=== PATIENT | male | born 1940 | race Caucasian/White ===

== ENCOUNTER 2019-11-24 15:55 | Inpatient (IN) | payer MEDICARE, MEDICAID ==
[~2019-11-24] VITALS: Ht 190.5 cm; Wt 85.5 kg
--- NOTE | ~2019-11-24 | PN ---
PATIENT:LIDYA ESTEVES MEDICAL RECORD: [id number] LOCATION:[facility] ADMISSION DATE: 11/24/19 PROGRESS NOTE DATE OF SERVICE: 12/04/2019 SUBJECTIVE: The patient's case was discussed with staff and the record was reviewed. OBJECTIVE: The patient is cognitively impaired. He is partially oriented. He is calm and cooperative and has not been aggressive to any appreciable degree. He is not suicidal and not psychotic. He simply cognitively impaired and I suspect a great deal of this was probably present prior to this subdural hematoma. ASSESSMENT: Dementia. PLAN: The patient is not capable of making reasonable informed consent decisions about his person or state. He is not competent. Unfortunately, he does not meet Medicare requirements [facility] at this time since there is no element of dangerousness other than needing supervision. I would recommend that the brother try to obtain guardianship or power of assistant attorney general. I think the patient is in need of [id number]-u-day supervision and if he does not wish to participate in rehabilitation services, then he may just simply have to be placed in a senior living. TRANSINT:[id number] Voice Confirmation ID: [id number] DOCUMENT ID: [id number] ROCIO REESE MD CC: [id number] DICTATION DATE: 12/04/19 1433 PHYSICAL OPTICS TEACHER: 12/04/19 1838 DIS IN 12/04/19 [facility] [address] [place] [address]
--- NOTE | 2019-11-24 16:21 | NUR ---
SHIKHA LAINEZ AP AT BEDSIDE AT THIS TIME WITH PAPERWORK FOR PT ANOOP FOR YANIQUE PSYCH. PHONE NUMBER IS [phone]
[2019-11-24 16:22] LABS: BASOPHILS 1.2 % (0-2); EOSINOPHILS 4.9 % (0-7); HEMATOCRIT 43.8 % (42.0-54.0); HEMOGLOBIN 14.7 g/dL (13.5-17.5); IMMATURE GRANULOCYTES 0.2 % (0-5); LYMPHOCYTES 18.7 % (15-50); MCH 28.6 pg (26.0-34.0); MCHC 33.6 g/dL (31.0-37.0); MCV 85.2 fL (80.0-100.0); MEAN PLATELET VOLUME 9.7 fL (7.4-10.4); MONOCYTES 6.5 % (2-11); NEUTROPHILS 68.5 % (40-80); PLATELET COUNT 223 10x3/uL (130-400); RBC 5.14 10x6/uL (4.20-6.10); RDW 13.4 % (11.5-14.5); WBC 5.9 10x3/uL (4.8-10.8)
[2019-11-24 16:35] LABS: APTT 29.5 SECONDS (22.8-39.4); INR 1.02 (0.85-1.17); PROTIME 13.3 SECONDS (11.6-15.0)
[2019-11-24 16:37] LABS: CALC OSMOLALITY 275 mosm/kg (275-300); CALCIUM 8.9 mg/dL (8.5-10.1); CARBON DIOXIDE 28.8 mmol/L (21.0-32.0); CHLORIDE - SERUM 104 mmol/L (98-107); CREATININE - SERUM 1.2 mg/dL (0.6-1.3); GLUCOSE 140 mg/dL (74-106); POTASSIUM - SERUM 3.9 mmol/L (3.5-5.1); SODIUM 137 mmol/L (136-145); UREA NITROGEN 13 mg/dL (7-18); eGFR NON AFRICAN AMERICAN 62 mL/min (90-120)
[2019-11-24 16:54] LABS: ALBUMIN 3.7 g/dL (3.4-5.0); ALKALINE PHOSPHATASE 39 U/L (30-120); ALT (SGPT) 18 U/L (10-68); BILIRUBIN - TOTAL 0.43 mg/dL (0.2-1.3); CKMB 0.9 U/L (0.0-3.6); CREATINE KINASE 56 UL (21-232); MAGNESIUM - SERUM 1.9 mg/dL (1.8-2.4); PROTEIN - SERUM 7.1 g/dL (6.4-8.2); THYROID STIMULATING HORMONE 1.92 uIU/mL (0.36-3.74); TROPONIN-I 0.039 ng/mL (0.000-0.060)
[2019-11-24 17:27] VITALS: BP 147/86
--- NOTE | 2019-11-24 18:47 | NUR ---
FINESSE BROTHER [phone]
[2019-11-24 19:34] VITALS: BP 174/81
--- NOTE | 2019-11-24 20:46 | NUR ---
STROKE BAND [id number]
--- NOTE | 2019-11-24 20:50 | NUR ---
PT RECIEVED VIA STRETCHER, UNABLE TO FOLLOW COMMANDS, ATTEMPTING TO CLIMB OUT OF BED, PLACED IN SWR, INCONTINENT OF URINE, PLACED LOWE,SCD'S TO BILAT LOWER LEGS, VITALS STABLE, PT HAS LARGE SUM OF ROOT IN WALLET, NOTIFIED ADMOSSIONS AND SENT TO [facility]E
--- NOTE | 2019-11-24 21:15 | NUR ---
NORMAL SALINE INFUSING AT ADMIT. RATE 75ML/HR
--- NOTE | 2019-11-24 21:40 | NUR ---
SPOKE WITH BROTHER IN [place], INFORMED OF PT STATUS AND WALLET WITH ROOT SENT TO [facility], STATES HE WANTS PT TO MAKE HIS OWN DECISIONS IF POSSIBLE
[2019-11-24 22:31] VITALS: BP 128/98; BMI 23.0
--- NOTE | 2019-11-24 23:45 | NUR ---
PT AWAKE AT TIMES, REMAINS CONFUSED, VITALS STABLE
[2019-11-25] VITALS (22 sets, daily range): BP systolic 119–178; BP diastolic 74–115; Ht 190.5 cm; Wt 85.5 kg
--- NOTE | 2019-11-25 01:15 | NUR ---
PT RESTING QUIETLY, AWAKENS AT TIMES, REMAINS CONFUSED, WILL CONT TO MONITOR
--- NOTE | 2019-11-25 03:30 | NUR ---
PT AWAKE, TRIES TO GET OUT OF BED AT TIMES, SWR REMAIN IN USE
[2019-11-25 06:44] LABS: BASOPHILS 0.3 % (0-2); EOSINOPHILS 2.3 % (0-7); HEMATOCRIT 43.3 % (42.0-54.0); HEMOGLOBIN 14.2 g/dL (13.5-17.5); IMMATURE GRANULOCYTES 0.3 % (0-5); MCH 28.3 pg (26.0-34.0); MCHC 32.8 g/dL (31.0-37.0); MCV 86.3 fL (80.0-100.0); MEAN PLATELET VOLUME 10.2 fL (7.4-10.4); MONOCYTES 7.1 % (2-11); PLATELET COUNT 243 10x3/uL (130-400); RBC 5.02 10x6/uL (4.20-6.10); RDW 13.4 % (11.5-14.5)
[2019-11-25 06:49] LABS: WBC 11.8 10x3/uL (4.8-10.8)
[2019-11-25 07:05] LABS: ALBUMIN 3.5 g/dL (3.4-5.0); ANION GAP 11.6 mmol/L (8-16); BILIRUBIN - TOTAL 0.56 mg/dL (0.2-1.3); CALCIUM 9.2 mg/dL (8.5-10.1); CARBON DIOXIDE 27.6 mmol/L (21.0-32.0); CREATININE - SERUM 1.1 mg/dL (0.6-1.3); POTASSIUM - SERUM 4.2 mmol/L (3.5-5.1); PROTEIN - SERUM 6.9 g/dL (6.4-8.2)
--- NOTE | 2019-11-25 08:32 | NUR ---
0700 report recieved and care assumed of patient.. see flow sheet for shift assesment findings.. pt is awake but does not follow commands.. pt is occassionaly approporiate with yes/ no questions.. no wrist restraints on at this time,, bed alarm on.. pt turns self frequently 0800 pt brother called on phone nupdate given... brother had lots of questions about pts ability to make his own decisions for his care explained to brother how neuro checks are done.. and determinations as to patients cognitive ability... brother appears to be reluctant to have to make decisions regarding patients care not believing that the patient is not capable of making decisions today.. yet he stated he was the one that called APS to make a well check on patient in his home because he wasnt acting right on the phone...
--- NOTE | 2019-11-25 10:11 | NUR ---
0945 TRI MEANS IN TO SEE PT.. UPDATE IS GIVEN .. 1005 MRI CALLED AND PT IS UNABLE TO ANSWER QUESTIONS OR LYE STILL FOR MRI HEAD
--- NOTE | 2019-11-25 11:46 | NUR ---
1030 DR NOBLE IN TO SEE PT.. UPDATE IS GIVEN.. DR ORDERED HALDOL FOR PATIENT AT THIS TIME SO THAT HE COULD BE CALM FOR THE MRI OF HEAD 1100 DR FRIEND IN TO SEE PATIENT.. UPDATE GIVEN.. 1145 DINING SERVICE WORKER IN TO DO ECHO.. PT IS GROGGY BUT REMAINS RESTLESS AND UNABLE TO FOLLOW DIRECTIONS..
--- NOTE | 2019-11-25 12:07 | NUR ---
1205 ECHO DONE.. UA AND UDS COLLECTED AND TAKEN TO LAB
[2019-11-25 12:49] LABS: UDS - AMPHET NEGATIVE QUAL (NEGATIVE); UDS - BARB NEGATIVE QUAL (NEGATIVE); UDS - BENZO NEGATIVE QUAL (NEGATIVE); UDS - COCAINE NEGATIVE QUAL (NEGATIVE); UDS - OPIATE NEGATIVE QUAL (NEGATIVE); UDS - PCP NEGATIVE QUAL (NEGATIVE); UDS - THC NEGATIVE QUAL (NEGATIVE)
--- NOTE | 2019-11-25 13:10 | NUR ---
1300 ATIVAN GIVEN FOR MRI 1310 PT TRANSPORTED TO MRI VIA [facility] STAFF WITH PT..
[2019-11-25 13:38] LABS: BACTERIA FEW /hpf (NEGATIVE); BILIRUBIN NEGATIVE (NEGATIVE); EPITHELIAL CELLS OCC /hpf (0-5); GLUCOSE NEGATIVE (NEGATIVE); KETONE MODERATE mg/dL (NEGATIVE); NITRITE NEGATIVE (NEGATIVE); SPECIFIC GRAVITY 1.015 (1.005-1.020); WHITE CELLS - URINE 0-5 /hpf (NEGATIVE)
--- NOTE | 2019-11-25 13:49 | NUR ---
1345 RETURNED FROM MRI PT IS GROGGY BUT EASILY ROUSED
--- NOTE | 2019-11-25 17:45 | NUR ---
1430 PT IS AWAKE AND WANTING TO LEAVE.. SETTLED EASILY BY TALKING WITH HIM.. 1530 BROTHER CALLED AND CALL TRANSFERED INTO PATIENTS ROOM AND PATIENT IS TALKINBG WITH HIM.. 1600 PT IS QUIET AT THIS TIME.. EYES CLOSED RESP EVEN AND DEEP.. 1730 APPEARS TO BE ASLEEP AT THIS TIME..
--- NOTE | 2019-11-25 19:00 | NUR ---
SHIFT ASSESSMENT COMPLETED. PT CARE ASSUMED. MONITORS ON AND WORKING, VSS. PT CONFUSED AND DISORIENTED. SEE FLOW SHEET FOR FURTHER DETAILS. WILL CONTINUE TO OBSERVE.
--- NOTE | 2019-11-25 21:00 | NUR ---
PT TURNED AND REPOSITIONED FOR COMFORT. MONITORS ON AND WORKNG, VSS. PT CONFUSED AND DISORIENTED. STRONG EXPOSURE MACHINE OPERATOR BILAT. CALL LIGHT WITHIN REACH, WILL CONTINUE TO OBSERVE.
--- NOTE | 2019-11-25 23:00 | NUR ---
NO CHANGES, SEE FLOW SHEET FOR FURTHER DETAILS. CALL LIGHT WITHIN REACH, WILL CONTINNUE TO OBSERVE.
[2019-11-26] VITALS (15 sets, daily range): BP systolic 131–166; BP diastolic 76–128
--- NOTE | 2019-11-26 01:00 | NUR ---
PT TURNED AND REPOSITIONED FOR COMFORT, MONITORS ON AND WORKING, VSS, WILL CONTINUE TO OBSERVE.
--- NOTE | 2019-11-26 03:00 | NUR ---
NO CHANGES,SEE FLOW SHEET FOR FURTHER DETAILS, WILL CONTINUE TO OBSERVE.
[2019-11-26 04:53] LABS: BASOPHILS 0.5 % (0-2); HEMATOCRIT 45.1 % (42.0-54.0); HEMOGLOBIN 14.6 g/dL (13.5-17.5); IMMATURE GRANULOCYTES 0.3 % (0-5); LYMPHOCYTES 15.8 % (15-50); MCH 27.9 pg (26.0-34.0); MCHC 32.4 g/dL (31.0-37.0); MCV 86.1 fL (80.0-100.0); MEAN PLATELET VOLUME 10.6 fL (7.4-10.4); NEUTROPHILS 71.4 % (40-80); PLATELET COUNT 232 10x3/uL (130-400); RBC 5.24 10x6/uL (4.20-6.10); RDW 13.4 % (11.5-14.5)
--- NOTE | 2019-11-26 05:00 | NUR ---
PT TURNED AND REPOSITIONED FOR COMFORT, MONITORS ON AND WORKING, VSS. WILL CONTINUE TO OBSERVE.
[2019-11-26 05:17] LABS: WBC 8.8 10x3/uL (4.8-10.8)
[2019-11-26 05:29] LABS: ALBUMIN 3.6 g/dL (3.4-5.0); ALKALINE PHOSPHATASE 33 U/L (30-120); ALT (SGPT) 18 U/L (10-68); BILIRUBIN - TOTAL 0.88 mg/dL (0.2-1.3); CALC OSMOLALITY 274 mosm/kg (275-300); CALCIUM 8.7 mg/dL (8.5-10.1); CARBON DIOXIDE 29.2 mmol/L (21.0-32.0); CHLORIDE - SERUM 103 mmol/L (98-107); GLUCOSE 91 mg/dL (74-106); MAGNESIUM - SERUM 1.9 mg/dL (1.8-2.4); POTASSIUM - SERUM 3.7 mmol/L (3.5-5.1); PROTEIN - SERUM 7.1 g/dL (6.4-8.2); SODIUM 138 mmol/L (136-145); UREA NITROGEN 11 mg/dL (7-18); eGFR NON AFRICAN AMERICAN 76 mL/min (90-120)
--- NOTE | 2019-11-26 10:02 | NUR ---
BROTHER FINESSE CALLED UPDATE PROVIDED
--- NOTE | 2019-11-26 11:00 | NUR ---
DANE FRIEND HERE ORDERS RECEIVED. ATE SOME JELLO. DENIES WANTING ANYTHING ELSE.
--- NOTE | 2019-11-26 14:16 | NUR ---
PHYSICAL THERAPY AND OT HERE. PATIENT UP IN CHAIR AT BEDSIDE.AMBULATED WITH WALKER. PATIENT ANSWERING QUESTIONS APPRIOPIATELY RIGHTN NOW. CHAIR ALARM IN PLACE FOR SAFETY.
--- NOTE | 2019-11-26 17:25 | NUR ---
OT NOTE: PT COMPLETED SUPINE TO SIT WITH MIN/MOD A. PT COMPLETED EOB SITTING WITH CGA. PT COMPLETED SIT TO STAND WITH CGA. PT COMPLETED ADL MOB WITH CGA. PT COMPLETED LE HYGIENE WITH MOD A. PT COMPLETED ELHAM/DOFF SOCK WITH MOD A. PT IS IMPULSIVE . PT EXHIBITED DIFFICULTY WITH 1 STEP TASKS. [phone] THANK YOU,DAMIEN ONEAL
--- NOTE | 2019-11-26 19:12 | NUR ---
PT LYING IN BED. BED ALARM ON. CL IN REACH. BED IN LOW SIDE RAILS X3. RESP EVEN AND UNLABORED. CONFUSED. LUNGS CLEAR BOWEL ACTIVE X4. WILL CONTINUE TO MONITOR.
[2019-11-27] VITALS: BP 128/83
--- NOTE | 2019-11-27 03:42 | NUR ---
I have reviewed this patient and I concur with the Shift Assessment completed by the Licensed Practical Nurse today this shift.
[2019-11-27 04:00] VITALS: BP 153/75
[2019-11-27 07:03] LABS: BASOPHILS 0.4 % (0-2); EOSINOPHILS 4.4 % (0-7); HEMATOCRIT 43.1 % (42.0-54.0); HEMOGLOBIN 14.1 g/dL (13.5-17.5); IMMATURE GRANULOCYTES 0.1 % (0-5); LYMPHOCYTES 18.9 % (15-50); MCH 27.9 pg (26.0-34.0); MCHC 32.7 g/dL (31.0-37.0); MCV 85.3 fL (80.0-100.0); MEAN PLATELET VOLUME 10.6 fL (7.4-10.4); MONOCYTES 8.6 % (2-11); NEUTROPHILS 67.6 % (40-80); PLATELET COUNT 250 10x3/uL (130-400); RBC 5.05 10x6/uL (4.20-6.10); RDW 13.3 % (11.5-14.5); WBC 9.4 10x3/uL (4.8-10.8)
[2019-11-27 07:14] LABS: ALBUMIN 3.2 g/dL (3.4-5.0); ALKALINE PHOSPHATASE 37 U/L (30-120); ALT (SGPT) 16 U/L (10-68); BILIRUBIN - TOTAL 0.65 mg/dL (0.2-1.3); CALC OSMOLALITY 275 mosm/kg (275-300); CALCIUM 8.7 mg/dL (8.5-10.1); CARBON DIOXIDE 26.2 mmol/L (21.0-32.0); CHLORIDE - SERUM 105 mmol/L (98-107); GLUCOSE 98 mg/dL (74-106); MAGNESIUM - SERUM 1.9 mg/dL (1.8-2.4); POTASSIUM - SERUM 3.7 mmol/L (3.5-5.1); PROTEIN - SERUM 6.6 g/dL (6.4-8.2); SODIUM 138 mmol/L (136-145); UREA NITROGEN 12 mg/dL (7-18); eGFR NON AFRICAN AMERICAN 76 mL/min (90-120)
--- NOTE | 2019-11-27 07:41 | NUR ---
I have reviewed this patient and I concur with the Shift Assessment completed by the Licensed Practical Nurse today this shift.
[2019-11-27 11:05] VITALS: BP 167/72
--- NOTE | 2019-11-27 13:13 | NUR ---
Nutrition follow-up: Per speech diet advanced to regular moist mechanical soft with gravy PO intake poor at this time Labs reviewed Wt: 188# Will continue to provide food choices with selective menus and honor food preferences. Will order Ensure with meals. RDN following.
[2019-11-27 15:07] VITALS: BP 101/69
--- NOTE | 2019-11-27 16:24 | NUR ---
OT NOTE: PT SITTING UP IN BED; MIN ASSIST WITH BED MOB; MIN ASSIST WITH GETTING TO EOB; PERFORMED SIMPLE 1 STEP COMMAND TASKS THAT PT WAS ABLE TO COMPLETE WITH GREATER THAN 50% ACCURACY. INCREASED DIFFICULTY WITH WORD FINDING; MILD-MOD COORDINATION DEFECITS; PT ABLE TO PERFORM SIMPLE GROOMING TASKS THAT WERE AUTOMATIC.. INCREASED DIFFICULTY WITH VERBAL INSTRUCTION. TATIANA JORGE, OTR/L [phone]
--- NOTE | 2019-11-27 16:40 | NUR ---
OT NOTE: PT COMPLETED EOB SITTING WITH CGA. PT COMPLETED BED MOB TASKS WITH MIN A. PT IS CONFUSED AND EXHIBITED DECREASED SAFETY AWARENESS. PT COMPLETED UE AROM EXS. PT COMPLETED CLOTHING MANAGEMENT WITH MOD Victor Hugo FOR GOWN. [phone] THANK YOU,DAMIEN ONEAL
[2019-11-27 18:58] VITALS: BP 133/102
--- NOTE | 2019-11-27 19:45 | NUR ---
PATIENT IN BED WITH IV INTACT. NO COMPLAINTS OR SIGNS OF DISTRESS. LOWE INTACT. TOLERATING PO WITH NO PROBLEMS. CALL LIGHT WITHIN REACH.
[2019-11-27 20:00] VITALS: BP 144/84
--- NOTE | 2019-11-27 20:00 | NUR ---
PT SITTING UP IN BED WITHOUT DISTRESS, CONFUSED TO SITUATION. IV LEFT FA INFUSING NS @ 75. LOWE IN PLACE. SCROTUM SWOLLEN. PT STATES IT IS A HERNIA. DENIES NEEDS AT THIS TIME. CL IN REACH, WILL CTM
[2019-11-28] VITALS: BP 129/71
--- NOTE | 2019-11-28 01:45 | NUR ---
PT GOT UP TO EDGE OF BED BY HIMSELF AND HAD BM IN THE FLOOR. CLEANED ROOM AND GAVE PT A BATH. LINENS CHANGED. PT WAS ABLE TO ASSIST IN BATH AND STOOD AT SIDE OF BED WITH MINIMAL ASSIST FROM NURSES AID WHILE CHANGING LINENS. MICHELA ON, CL IN REACH, SIDE RAILS X2
[2019-11-28 04:00] VITALS: BP 158/88
[2019-11-28 05:06] LABS: BASOPHILS 0.5 % (0-2); EOSINOPHILS 4.1 % (0-7); HEMATOCRIT 40.9 % (42.0-54.0); HEMOGLOBIN 13.3 g/dL (13.5-17.5); IMMATURE GRANULOCYTES 0.3 % (0-5); LYMPHOCYTES 16.8 % (15-50); MCH 27.9 pg (26.0-34.0); MCHC 32.5 g/dL (31.0-37.0); MCV 85.7 fL (80.0-100.0); MEAN PLATELET VOLUME 10.3 fL (7.4-10.4); MONOCYTES 9.5 % (2-11); NEUTROPHILS 68.8 % (40-80); PLATELET COUNT 239 10x3/uL (130-400); RBC 4.77 10x6/uL (4.20-6.10); RDW 13.4 % (11.5-14.5); WBC 8.8 10x3/uL (4.8-10.8)
[2019-11-28 05:34] LABS: ALKALINE PHOSPHATASE 35 U/L (30-120); ALT (SGPT) 15 U/L (10-68); BILIRUBIN - TOTAL 0.43 mg/dL (0.2-1.3); CALC OSMOLALITY 272 mosm/kg (275-300); CALCIUM 8.8 mg/dL (8.5-10.1); CARBON DIOXIDE 27.7 mmol/L (21.0-32.0); CHLORIDE - SERUM 103 mmol/L (98-107); CREATININE - SERUM 0.9 mg/dL (0.6-1.3); GLUCOSE 105 mg/dL (74-106); MAGNESIUM - SERUM 1.9 mg/dL (1.8-2.4); POTASSIUM - SERUM 3.5 mmol/L (3.5-5.1); PROTEIN - SERUM 6.1 g/dL (6.4-8.2); SODIUM 136 mmol/L (136-145); UREA NITROGEN 14 mg/dL (7-18); eGFR NON AFRICAN AMERICAN 86 mL/min (90-120)
--- NOTE | 2019-11-28 08:00 | NUR ---
PATIENT IN BED WITH IV INTACT. NO COMPLAINTS. CALL LIGHT WITHIN REACH.
[2019-11-28 09:41] VITALS: BP 151/91
--- NOTE | 2019-11-28 11:56 | MORECARE ---
CASE MANAGEMENT DISCHARGE SUMMARY PATIENT: LIDYA ESTEVES UNIT: [id number] ADM DATE: 11/24/19 AGE: 79 : 40 SEX: M ROOM/BED: D.2212 AUTHOR: JANETTE CASH PHYSICIAN: REFERRING PHYSICIAN: OSMAN FRIEND DO DATE OF SERVICE: 11/28/19 Discharge Plan Patient Name: LIDYA ESTEVES Facility: [facility]:[place] : 1940 Planned Disposition: Inpatient Rehab Anticipated Discharge Date: Discharge Date: Expected LOS: Initial Reviewer: [email or web address] Initial Review Date: 11/24/2019 Generated: 11/28/19 12:55 pm Comments DCP- Discharge Planning Updated by [email or web address]: Kate Lawrence on 11/28/19 10:[address] I called Melisa with [facility]PS ( [phone]) and left message for her to call me back DCP- Discharge Planning Updated by [email or web address]: Kate Lawrence on 11/28/19 10:[address] Patient Name: LIDYA ESTEVES Admission Status: ER Accout number: [id number] Admission Date: 11-24-2019 : 1940 Admission Diagnosis:NONTRAUMATIC INTRACRANIAL HEMORRHAGE, UNSPECIFIED Attending: OSMAN FRIEND Current LOS: 4 Anticipated DC Date: Planned Disposition: Inpatient Rehab Primary Insurance: [facility] [employer] Discharge Planning Comments: CM spoke with patient's brother Billy at length about his plan of care. Billy stated that he called [facility]PS. Patient lives in the [facility]. He does not have a car, but takes a taxi to go to the grocery store or has a friend take him. He is afraid of doctors and does not see any. He lives alone. The is a question about eviction at his home. I will attempt to get ahold of the [facility]PS worker to see what she can tell me. I attempted to speak with the patient, but he was sleeping. CM will continue to follow and assist Commercial Attache: Kate Lawrence DCPIA - Discharge Planning Initial Assessment Updated by [id number]: Kate Lawrence on 11/28/19 11:47 am * Is the patient Alert and Oriented? Yes * How many steps to enter\exit or inside your home? ELEVATOR * PCP NONE * Preadmission Environment Independent [facility] * Other Environment [facility] * ADLs Independent * List name and contact numbers for known caregivers / representatives who currently or will assist patient after discharge: BILLY (BROTHER) [phone] * Additional services required to return to the preadmission environment? Yes * Can the patient safely return to the preadmission environment? No * Has this patient been hospitalized within the prior 30 days at any hospital? No Patient Name: LIDYA ESTEVES Page [phone] at 1156 All edits/amendments must be made on the electronic document DICTATION DATE: 11/28/19 1155 INVESTMENT SALES ASSISTANT: BASSAM 11/28/19 1155 RPT#: [id number] DC DATE: STATUS: ADM IN [facility] [address] [place] [address] END OF REPORT
[2019-11-28 13:45] VITALS: BP 149/68
--- NOTE | 2019-11-28 15:10 | NUR ---
OT NOTE: ATTEMPTED TO GET PT TO EAT BOTH BREAKFAST AND LUNCH WITH NO SUCCESS. PT IS ABLE TO FEED HIMSELF BUT DOESNT WANT TO EAT.. STATES THAT HES NOT HUNGRY. PT ABLE TO WASH HANDS AND FACE WITH CLOTH WITH SET UP AND CUES. AMB IN ROOM WITH ASSIST..BED MOB WITH MIN ASSIST.. TATIANA JORGE, OTR/L [phone]
--- NOTE | 2019-11-28 15:55 | NUR ---
OT NOTE: PT COMPLETED SIT TO STAND WITH CGA. PT COMPLETED ADL MOB WITH CGA. PT COMPLETED UB HYGIENE TASKS WITH MIN A. PT HAS CONTINUED CONFUSION. [phone] THANK YOU,DAMIEN ONEAL
[2019-11-28 16:00] VITALS: BP 149/80
--- NOTE | 2019-11-28 18:30 | NUR ---
PATIENT IN BED WITH IV INTACT. NO COMPLAINTS OR SIGNS OF DISTRESS. CALL LIGHTW ITHIN REACH.
--- NOTE | 2019-11-28 19:30 | NUR ---
PT SITTING UP IN BED WITHOUT DISTRESS, AOX4. IV LEFT WRIST INFUSING NS @ KVO. MICHELA ON. DENIES NEEDS. CL IN REACH, WILL CTM
[2019-11-28 20:00] VITALS: BP 125/83
[2019-11-29] VITALS (7 sets, daily range): BP systolic 130–191; BP diastolic 68–100
[2019-11-29 06:27] LABS: BASOPHILS 0.8 % (0-2); EOSINOPHILS 6.3 % (0-7); HEMATOCRIT 41.6 % (42.0-54.0); HEMOGLOBIN 13.6 g/dL (13.5-17.5); IMMATURE GRANULOCYTES 0.4 % (0-5); LYMPHOCYTES 23.7 % (15-50); MCH 28.2 pg (26.0-34.0); MCHC 32.7 g/dL (31.0-37.0); MCV 86.1 fL (80.0-100.0); MEAN PLATELET VOLUME 10.5 fL (7.4-10.4); NEUTROPHILS 60.8 % (40-80); PLATELET COUNT 241 10x3/uL (130-400); RBC 4.83 10x6/uL (4.20-6.10); RDW 13.5 % (11.5-14.5); WBC 7.9 10x3/uL (4.8-10.8)
[2019-11-29 07:05] LABS: ALBUMIN 3.1 g/dL (3.4-5.0); ALKALINE PHOSPHATASE 34 U/L (30-120); ALT (SGPT) 17 U/L (10-68); BILIRUBIN - TOTAL 0.47 mg/dL (0.2-1.3); CALC OSMOLALITY 272 mosm/kg (275-300); CALCIUM 8.8 mg/dL (8.5-10.1); CARBON DIOXIDE 27.5 mmol/L (21.0-32.0); CHLORIDE - SERUM 104 mmol/L (98-107); CREATININE - SERUM 0.9 mg/dL (0.6-1.3); GLUCOSE 98 mg/dL (74-106); MAGNESIUM - SERUM 1.9 mg/dL (1.8-2.4); POTASSIUM - SERUM 3.3 mmol/L (3.5-5.1); PROTEIN - SERUM 6.3 g/dL (6.4-8.2); SODIUM 137 mmol/L (136-145); UREA NITROGEN 11 mg/dL (7-18); eGFR NON AFRICAN AMERICAN 86 mL/min (90-120)
--- NOTE | 2019-11-29 11:59 | NUR ---
Rehab Note- Acute Inpatient Rehab prescreen order recieved. The patient has [facility] insurance and will require a PreAuth. He also has a pending psych eval at this time. Will follow and initiate PreAuth process. Thank you for this referral! Christina Wynn RN Clinical Liaison, [facility] Rehab
--- NOTE | 2019-11-29 12:00 | NUR ---
PT LAYING DOWN IN BED. PT APPEARS TO HAVE EXPRESSIVE APHASIA. WORDS SLURRED. PROVIDED PT WITH PAPER AND PEN TO ASSES IF HE COULD COMMUNICATE MORE EFFICENTLY. PT ABLE TO WRITE HIS NAME. HE DOES APPEAR TO UNDERSTAND QUESTIONS AND RESPONDS SLOWLY. PIV IN LEFT FOREARM, PATENT, NON-TENDER. PT IS HIGH RISK FOR FALLS AND HAS BED MICHELA ON. PTS SCROTUM IS SWOLLEN AND RED. HE REPORTS NO PAIN. PT DENIES FURTHER NEEDS. BED LOW, RAILS X2. CL IN REACH. WILL CONTINUE TO MONITOR.
--- NOTE | 2019-11-29 13:24 | NUR ---
AFTER NUMEROUS ATTEMPTS AND PT EDUCATION REGARDING US ORDERED, PT REFUSES TO ALLOW TESTING TO BE COMPLETED. WROTE OUT INFORMATION FOR PT REGARDING PROCEDURE (IN WHICH HE SEEMS TO COMPREHEND WRITTEN INSTRUCTION BETTER) HE MAKES HIMSELF CLEAR THAT HE DOES NOT WANT THE PROCEDURE DONE.
--- NOTE | 2019-11-29 20:00 | NUR ---
LYING IN BED. ALERT AND ORINTED TO SELF AND PLACE. CONFUSED TO TIME AND SITUATION. RESP EVEN AND NONLABORED. SCROTAL EDEMA NOTED. LOWE CATH PATENT AND DRAINING CLEAR YELLOW URINE. EXPRESSIVE APHASIA NOTED WITH SLURRED/GARBLED SPEECH. MICHELA ALARM ON FOR PT SAFETY. NS @ 20 MLHR INFUSING IN LT FOREARM. SR ELEVATED X2. CL IN REACH. DENIES PAIN.
[2019-11-30] VITALS: BP 164/85
[2019-11-30 04:00] VITALS: BP 172/98
--- NOTE | 2019-11-30 04:01 | NUR ---
HASNT SLEPT MUCH TONIGHT BUT NO DISTRESS. CL IN REACH. LYING IN BED. RESP EVEN AND NONLABORED.
[2019-11-30 05:56] LABS: BASOPHILS 0.4 % (0-2); EOSINOPHILS 6.3 % (0-7); HEMATOCRIT 42.6 % (42.0-54.0); HEMOGLOBIN 13.9 g/dL (13.5-17.5); IMMATURE GRANULOCYTES 0.3 % (0-5); LYMPHOCYTES 22.4 % (15-50); MCHC 32.6 g/dL (31.0-37.0); MCV 85.9 fL (80.0-100.0); MEAN PLATELET VOLUME 10.8 fL (7.4-10.4); MONOCYTES 8.2 % (2-11); NEUTROPHILS 62.4 % (40-80); PLATELET COUNT 259 10x3/uL (130-400); RBC 4.96 10x6/uL (4.20-6.10); RDW 13.4 % (11.5-14.5); WBC 7.7 10x3/uL (4.8-10.8)
[2019-11-30 06:48] LABS: ALBUMIN 3.2 g/dL (3.4-5.0); ALKALINE PHOSPHATASE 33 U/L (30-120); ALT (SGPT) 20 U/L (10-68); BILIRUBIN - TOTAL 0.53 mg/dL (0.2-1.3); CALC OSMOLALITY 270 mosm/kg (275-300); CALCIUM 8.6 mg/dL (8.5-10.1); CHLORIDE - SERUM 102 mmol/L (98-107); CREATININE - SERUM 0.9 mg/dL (0.6-1.3); GLUCOSE 98 mg/dL (74-106); POTASSIUM - SERUM 3.4 mmol/L (3.5-5.1); PROTEIN - SERUM 6.5 g/dL (6.4-8.2); SODIUM 136 mmol/L (136-145); UREA NITROGEN 10 mg/dL (7-18); eGFR NON AFRICAN AMERICAN 86 mL/min (90-120)
[2019-11-30 08:59] VITALS: BP 147/86
--- NOTE | 2019-11-30 09:46 | NUR ---
PT RESTING IN BED ON CELL PHONE. PT ALERT AND PRESENTS TO BE ORIENTED. PT SPEECH IS GARBLED AND AND SOMEWHAT DIFFICULT TO UNDERSTAND, BUT PT WILL REPEAT SELF UNTIL ABLE TO BETTER UNDERSTAND HIS WISHES AND NEEDS. PT DENIES PAIN. IV TO LEFT FOREARM WITH NS @ 20ML/HR INFUSING VIA PUMP. SITE WITHOUT REDNESS OR EDEMA. F/C PATENT TO GRAVITY, DRAINING YELLOW URINE. SCROTAL EDEMA NOTED. PT DENIES PAIN OF AREA. DENIES FURTHER NEEDS AT THIS TIME. CL WITHIN REACH. ENCOURAGED TO CALL WITH NEEDS. CONTINUE POC
[2019-11-30 12:10] VITALS: BP 159/98
[2019-11-30 16:50] VITALS: BP 157/95
[2019-11-30 20:00] VITALS: BP 161/92
--- NOTE | 2019-11-30 20:30 | NUR ---
SITTING UP IN BED. ALERT AND ORIENTED TO SELF AND TIME. CONFUSED TO PLACE AND SITUATION. SPEECH DIFF TO UNDERSTAND. EXPRESSIVE APHASIA NOTED. IRRITABLE AND AGITATED AT TIMES. RESP EVEN AND NONLABORED. DENIES PAIN. SCROTAL EDEMA NOTED. LOWE CATH PATENT AND DRAINING CLEAR YELLOW URINE. NS @ 75 MLHR INFUSING IN LT FOREARM. BRUISES NOTED TO BUE. BED ALARM ON FOR PT SAFETY. NO DISTRESS. DENIES NEEDS. SR ELEVATED X2. CL IN REACH.
[2019-12-01] VITALS: BP 160/80
--- NOTE | 2019-12-01 03:04 | NUR ---
RESTING IN BED WITH EYES CLOSED. RESP NONLABORED. NO DISTRESS. SR ELEVATED X2. CL IN REACH.
[2019-12-01 04:00] VITALS: BP 164/68
[2019-12-01 05:31] LABS: ALBUMIN 3.1 g/dL (3.4-5.0); ALKALINE PHOSPHATASE 31 U/L (30-120); ALT (SGPT) 20 U/L (10-68); BILIRUBIN - TOTAL 0.47 mg/dL (0.2-1.3); CALC OSMOLALITY 268 mosm/kg (275-300); CALCIUM 8.6 mg/dL (8.5-10.1); CARBON DIOXIDE 28.1 mmol/L (21.0-32.0); CHLORIDE - SERUM 104 mmol/L (98-107); GLUCOSE 89 mg/dL (74-106); POTASSIUM - SERUM 3.7 mmol/L (3.5-5.1); PROTEIN - SERUM 6.1 g/dL (6.4-8.2); SODIUM 136 mmol/L (136-145); eGFR NON AFRICAN AMERICAN 76 mL/min (90-120)
[2019-12-01 05:33] LABS: UREA NITROGEN 7 mg/dL (7-18)
[2019-12-01 05:40] LABS: BASOPHILS 0.7 % (0-2); EOSINOPHILS 6.4 % (0-7); HEMATOCRIT 40.7 % (42.0-54.0); HEMOGLOBIN 13.4 g/dL (13.5-17.5); IMMATURE GRANULOCYTES 0.3 % (0-5); LYMPHOCYTES 24.8 % (15-50); MCH 28.3 pg (26.0-34.0); MCHC 32.9 g/dL (31.0-37.0); MCV 85.9 fL (80.0-100.0); MEAN PLATELET VOLUME 10.6 fL (7.4-10.4); MONOCYTES 8.1 % (2-11); NEUTROPHILS 59.7 % (40-80); PLATELET COUNT 235 10x3/uL (130-400); RBC 4.74 10x6/uL (4.20-6.10); RDW 13.3 % (11.5-14.5); WBC 7.2 10x3/uL (4.8-10.8)
--- NOTE | 2019-12-01 06:37 | NUR ---
SITTING UP IN BED WATCHING TV. EXPRESSIVE APHASIA AND GETS FRUSTRUATED WITH SELF AND STAFF. CL IN REACH.
[2019-12-01 08:27] VITALS: BP 169/97
--- NOTE | 2019-12-01 09:21 | NUR ---
ASSESMENT PER FLOW SHEET. PATIENT IS WITHOUT DISTRESS. INT CONFUSION THIS AM. SPEACH IS CLEAR AT TIMES,BUT GARBLED AT OTHERS. FALL PREVENTION IN PLACE. DOOR OPEN
--- NOTE | 2019-12-01 12:24 | NUR ---
REFUSES TO ELEVATE SCROTUM. LOWE CLAMPED FOR URINE TO SEND TO LAB.
[2019-12-01 12:41] VITALS: BP 131/86
--- NOTE | 2019-12-01 13:12 | NUR ---
CALL FROM FAMILY,PASSWORD CONFIRMED.UPDATE ON PATIENT STATUS GIVEN TO BROTHER.
--- NOTE | 2019-12-01 13:30 | NUR ---
WENT TO SEE IF FRESH URINE IN LOWE UBING FOR LAB. LOWE HAD BEEN UNCLAMPED. LOWE RECLAMPED
--- NOTE | 2019-12-01 15:44 | NUR ---
CHECKED OR URINE COLLECTE IN TUBING. NOT ENOUGH URINE FOR LAB YET.
--- NOTE | 2019-12-01 15:48 | NUR ---
OT NOTE: PT SITTING UP IN BED; ABLE TO MOVE TO EOB WITH MIN ASSIST; SIT TO STAND WITH MIN ASSIST AND WALKER; SIMPLE GROOMING TASKS WITH MIN ASSIST; PT BECOMING FRUSTRATED DUE TO EXPRESSIVE APHASIA. TATIANA JORGE, OTR/L [phone]
--- NOTE | 2019-12-01 15:59 | NUR ---
OT NOTE: PT SPEECH IS MORE DIFFICULT TO UNDERSTAND TODAY. PT REQUIRED EXTENSIVE REDIRECTION. PT COMPLETED SUPINE TO SIT WITH CGA/MIN . PT COMPLETED ADL MOB WITH R/W WITH CGA. PT COMPLETED UE AROM EXERCISES WITH FOCUS TO TRICEP/BICEPS. [phone] ELISABETH STEARNS COTA
[2019-12-01 16:46] VITALS: BP 137/71
[2019-12-01 20:00] VITALS: BP 137/92
[2019-12-01 20:06] LABS: BILIRUBIN NEGATIVE (NEGATIVE); GLUCOSE NEGATIVE (NEGATIVE); KETONE MODERATE mg/dL (NEGATIVE); NITRITE NEGATIVE (NEGATIVE); SPECIFIC GRAVITY 1.025 (1.005-1.020); UROBILINOGEN NORMAL (NORMAL)
[2019-12-01 20:07] LABS: BACTERIA FEW /hpf (NEGATIVE); WHITE CELLS - URINE OCC /hpf (NEGATIVE); YEAST <1+ /hpf (NONE SEEN)
--- NOTE | 2019-12-01 23:21 | NUR ---
ALERT IN ROOM, SPEECH IS GARBLED. TV GUIDE GIVEN, DENIES FURTHER NEEDS, CTM.
[2019-12-02] VITALS: BP 144/89
--- NOTE | 2019-12-02 03:05 | NUR ---
I have reviewed this patient and I concur with the Shift Assessment completed by the Licensed Practical Nurse today this shift.
[2019-12-02 04:00] VITALS: BP 144/86
[2019-12-02 06:06] LABS: BASOPHILS 0.6 % (0-2); EOSINOPHILS 5.4 % (0-7); HEMATOCRIT 38.9 % (42.0-54.0); HEMOGLOBIN 12.8 g/dL (13.5-17.5); IMMATURE GRANULOCYTES 0.3 % (0-5); LYMPHOCYTES 23.8 % (15-50); MCH 28.1 pg (26.0-34.0); MCHC 32.9 g/dL (31.0-37.0); MCV 85.3 fL (80.0-100.0); MEAN PLATELET VOLUME 10.6 fL (7.4-10.4); MONOCYTES 7.3 % (2-11); NEUTROPHILS 62.6 % (40-80); PLATELET COUNT 231 10x3/uL (130-400); RBC 4.56 10x6/uL (4.20-6.10); RDW 13.4 % (11.5-14.5); WBC 6.9 10x3/uL (4.8-10.8)
[2019-12-02 06:22] LABS: ALBUMIN 2.8 g/dL (3.4-5.0); ALKALINE PHOSPHATASE 31 U/L (30-120); ALT (SGPT) 16 U/L (10-68); BILIRUBIN - TOTAL 0.39 mg/dL (0.2-1.3); CALC OSMOLALITY 272 mosm/kg (275-300); CALCIUM 8.5 mg/dL (8.5-10.1); CARBON DIOXIDE 26.5 mmol/L (21.0-32.0); CHLORIDE - SERUM 105 mmol/L (98-107); CREATININE - SERUM 0.9 mg/dL (0.6-1.3); GLUCOSE 84 mg/dL (74-106); MAGNESIUM - SERUM 1.8 mg/dL (1.8-2.4); PHOSPHOROUS 3.1 mg/dL (2.5-4.9); POTASSIUM - SERUM 3.8 mmol/L (3.5-5.1); PROTEIN - SERUM 5.4 g/dL (6.4-8.2); SODIUM 138 mmol/L (136-145); UREA NITROGEN 8 mg/dL (7-18); eGFR NON AFRICAN AMERICAN 86 mL/min (90-120)
[2019-12-02 08:41] VITALS: BP 151/76
[2019-12-02 12:07] VITALS: BP 108/63
--- NOTE | 2019-12-02 14:43 | NUR ---
Nutrition Follow-up: Diet: Regular Moist Mech Soft with Gravy/sauce + Ensure (NO FREE WATER) PO intake: ~49% average x last 4 meals; patient asleep at time of RD visit. I did note only 2 unopened Ensure on bedside table. Unless he is sending them back on trays, I would assume that he is drinking them. Last BM: 11/30/19. Wt: 188# (11/27/19) Meds noted: NS@75mL/hr. Labs reviewed. Recommend continue current diet and oral nutrition supplements. RD following.
--- NOTE | 2019-12-02 14:53 | NUR ---
OT NOTE: BED MOB WITH SBA FOR SUPINE TO SIT; EOB SITTING WITH GOOD BALANCE; MIN/MOD ASSIST FOR SPONGE BATH; ABLE TO BRUSH HAIR WITH SET UP; ELHAM SOCKS WITH SET UP; GOWN WITH MIN ASSIST. TRANSFERS WITH CGA; SPEECH IMPROVED THROUGHOUT SESSION.. BY END OF TMT, PT WAS ABLE TO SPEAK 3-4 WORD SENTENCES WITH MUCH IMPROVED INTELIGEBILITY... TATIANA JORGE, OTR/L [phone]
--- NOTE | 2019-12-02 16:25 | NUR ---
OT NOTE: PT COMPLETED SIMPLE HYGIENE TASKS AT EOB WITH CGA FOR SITTING BALANCE. PT COMPLETED HAIR GROOMING WITH SETUP AND ORAL CARE WITH SETUP USING TOOTHETTE. PT COMPLETED SUPINE TO SIT WITH CGA. PT SPEECH IS MORE INTELLIGIBLE AND APPROPRIATE RESPONSES. [phone] THANK YOU,DAMIEN ONEAL
[2019-12-02 16:42] VITALS: BP 143/81
[2019-12-02 20:00] VITALS: BP 153/73
[2019-12-03] VITALS: BP 132/77
--- NOTE | 2019-12-03 02:22 | NUR ---
SUPINE IN BED, A&O X 4. DENIES PAIN/NEEDS AT THIS TIME, CTM.
--- NOTE | 2019-12-03 02:39 | NUR ---
I have reviewed this patient and I concur with the Shift Assessment completed by the Licensed Practical Nurse today this shift.
[2019-12-03 04:00] VITALS: BP 138/72
[2019-12-03 05:45] LABS: BASOPHILS 0.5 % (0-2); EOSINOPHILS 5.7 % (0-7); HEMATOCRIT 39.2 % (42.0-54.0); IMMATURE GRANULOCYTES 0.4 % (0-5); LYMPHOCYTES 21.7 % (15-50); MCH 28.4 pg (26.0-34.0); MCHC 33.2 g/dL (31.0-37.0); MCV 85.6 fL (80.0-100.0); MEAN PLATELET VOLUME 10.8 fL (7.4-10.4); MONOCYTES 8.4 % (2-11); NEUTROPHILS 63.3 % (40-80); PLATELET COUNT 259 10x3/uL (130-400); RBC 4.58 10x6/uL (4.20-6.10); RDW 13.3 % (11.5-14.5); WBC 7.4 10x3/uL (4.8-10.8)
[2019-12-03 05:55] LABS: ALBUMIN 2.8 g/dL (3.4-5.0); ALKALINE PHOSPHATASE 31 U/L (30-120); ALT (SGPT) 17 U/L (10-68); BILIRUBIN - TOTAL 0.39 mg/dL (0.2-1.3); CALC OSMOLALITY 275 mosm/kg (275-300); CALCIUM 8.4 mg/dL (8.5-10.1); CARBON DIOXIDE 27.8 mmol/L (21.0-32.0); CHLORIDE - SERUM 106 mmol/L (98-107); CREATININE - SERUM 0.9 mg/dL (0.6-1.3); GLUCOSE 93 mg/dL (74-106); MAGNESIUM - SERUM 1.8 mg/dL (1.8-2.4); PHOSPHOROUS 2.9 mg/dL (2.5-4.9); POTASSIUM - SERUM 3.5 mmol/L (3.5-5.1); PROTEIN - SERUM 5.7 g/dL (6.4-8.2); SODIUM 139 mmol/L (136-145); UREA NITROGEN 6 mg/dL (7-18); eGFR NON AFRICAN AMERICAN 86 mL/min (90-120)
--- NOTE | 2019-12-03 06:34 | NUR ---
REFUSING ALL MORNING MEDS, INCLUDING POTASSIUM AND MAGNESIUM FOR ELECTROLYTE REPLACEMENT PROTOCOL . INFORMED OF IMPORTANCE TO HEALTH TO TAKE MEDICATION, PT CONTINUES REFUSAL. WANTS TO BE DISCHARGED SOON.
[2019-12-03 09:11] VITALS: BP 130/81
--- NOTE | 2019-12-03 10:28 | NUR ---
Recieved a call from Rose with [facility] [phone]. This patient has been briana'd for 7 days in the ARU. Auth# [id number]. U/D due to Pra[place]en Wylie [phone], . Rehab currently does not have a male bed. Should have one tomorrow. Will discuss in the IDT. Cathy Blood RN Clinical Liaison, Rehab
[2019-12-03 12:22] VITALS: BP 134/71
--- NOTE | 2019-12-03 14:44 | NUR ---
OT NOTE: PT COMPLETED SUPINE TO SIT WITH CGA. PT REQUIRED MODERATE ASSISTANCE WITH BED CLOTHING MANAGEMENT . PT COMPLETED EOB SITTING BALANCE WITH CGA PERFORMING HAIR GROOMING. PT REQUIRED MIN A WITH ORAL HYGIENE. [phone] ELISABETH STEARNS.DAMIEN
--- NOTE | 2019-12-03 15:58 | NUR ---
OT NOTE: BED MOB AND IN ROOM AMB CONT AT MIN/CGA LEVEL; SPEECH NOT INTELLIGABLE YESTERDAY; REMAINS CONFUSED; REQUIRED INCREASED ENCOURAGEMENT FOR PARTICIPATION TODAY VS YESTERDAY; ABLE TO PERFORM SIMPLE HAND WASHING TASK WHILE STANDING AT SINK WITH FAIR+ BALANCE.. TATIANA JORGE,OTR/L [phone]
[2019-12-03 17:04] VITALS: BP 144/88
--- NOTE | 2019-12-03 18:00 | NUR ---
PATIENT IN BED WITH IV INTACT. LOWE INTACT. URINE FOR CULTURE COLLECTED STERILLY THROUGH HUB ON CATH. UNCLAMPED LOWE AFTER COLLECTING URINE. SENT TO LAB. PATIEN CALL LIGHT WITHN REACH.
--- NOTE | 2019-12-03 19:15 | NUR ---
SUPINE IN BED. AWAKE, BUT STATES HE'S TRYING TO SLEEP. COKE GIVEN PER REQUEST, DENIES FURTHER NEEDS, CTM.
[2019-12-03 20:00] VITALS: BP 135/81
[2019-12-04] VITALS: BP 120/68
--- NOTE | 2019-12-04 00:33 | NUR ---
I have reviewed this patient and I concur with the Shift Assessment completed by the Licensed Practical Nurse today this shift.
[2019-12-04 04:00] VITALS: BP 151/84
--- NOTE | 2019-12-04 04:45 | NUR ---
PT DOES NOT WISH TO RECIEVE MORNINGS PILL OR TO BE COVERED IN ELECTROLYTE PROTOCOL. STATES HE WILL NOT TAKE ANY MORE PILLS AND WANTS TO GO HOME. STATES HE LIVES [place] [address] [place] [phone] IN AN ASSISTED LIVING FACILITY WITH A HUNDRED OTHER PEOPLE THERE AND HE LIKES IT THERE BETTER.
--- NOTE | 2019-12-04 08:34 | NUR ---
PATIENT LAYING ON RIGHT SIDE. NEURO CHECKS COMPLETED. PATIENT A/O X4. REFUSES TO LAY ON BACK TO AID IN SHIFT ASSESSMENT. COMPLETED WHILE HE WAS ON HIS SIDE. QUESTIONS ABOUT WHEN BREAKFAST WILL BE HERE. I ANSWERED IT'S RIGHT OUTSIDE. CL IN REACH. BED ALARM ON. [facility]
[2019-12-04 09:00] VITALS: BP 140/83
[2019-12-04] MEDS ORDERED: ROCEPHIN 1 GM/D51 G1 IV (12:13)
[2019-12-04] MEDS ORDERED: CELEXA20 MG PO (12:13)
[2019-12-04] MEDS ORDERED: CALMOSEPTINE OI71 GM TOPICAL (12:14)
[2019-12-04] MEDS ORDERED: PROTONIX40 MG PO (12:14)
[2019-12-04 12:57] VITALS: BP 132/68
[2019-12-04] MEDS ORDERED: NICODERM CQ1 EAC1 TOPICAL (13:34)
--- NOTE | 2019-12-04 13:50 | NUR ---
OT NOTE: PT CONT TO AMB WITH WALKER IN ROOM WITH CGA; TRANSFERS WITH CGA; PT DOES NOT INITIATE ANY ADLS INCLUDING GROOMING, BATHING, DRESSING...HE IS ABLE TO PERFORM IF INSTRUCTED TO, AND IF HE IS AGREEABLE. PT WANTING TO GO HOME, BUT IF HE LIVES ALONE, I DONT FEEL THIS IS A SAFE RETURN. PT MAY BE ABLE TO GET AROUND SAFELY, BUT I DONT THINK HE WILL CARE FOR HIMSELF UNLESS THERE IS SOMEONE TO PROVIDE INSTRUCTIONAL CUES. IF HE HAS BEEN PREPARING HIS MEALS PRIOR TO ADMISSION, HE IS CURRENTLY NOT AT THAT LEVEL AT THIS TIME. PT IS UNABLE TO PROVIDE THERAPIST MUCH INFO ABOUT PLOF AND BECOMES FRUSTRATED WITH EXTENSIVE QUESTIONING REGARDING THIS SUBJECT. TATIANA JORGE, OTR/L [phone]
--- NOTE | 2019-12-04 14:10 | MORECARE ---
CASE MANAGEMENT DISCHARGE SUMMARY PATIENT: LIDYA ESTEVES UNIT: [id number] ADM DATE: 11/24/19 AGE: 79 : 40 SEX: M ROOM/BED: D.2212 AUTHOR: JANETTE CASH PHYSICIAN: REFERRING PHYSICIAN: OSMAN FRIEND DO DATE OF SERVICE: 12/04/19 Discharge Plan Patient Name: LIDYA ESTEVES Facility: [facility]:[place] : 1940 Planned Disposition: Inpatient Rehab Anticipated Discharge Date: Discharge Date: Expected LOS: Initial Reviewer: [email or web address] Initial Review Date: 11/24/2019 Generated: 12/04/19 3:09 pm Comments DCP- Discharge Planning Updated by [email or web address]: Kate Lawrence on 12/04/19 1:[address] PATIENT HAS BEEN ACCEPTED TO INPATIENT REHAB, AFTER SPEAKING WITH THE BROTHER AND LET HIM KNOW, I SPOKE WITH THE PATIENT AND HE IS REFUSING TO GO. PATIENT IS NO ORIENTED TO ANYTHING BUT SELF. HE DOES NOT KNOW THE PRESIDENT, YEAR, WHERE HE IS AT, WHERE HE LIVES. I HAVE EXPLAINED TO THE BROTHER ABOUT THIS AND HE WAS GOING TO CALL HIS BROTHER AND TRY TO TALK TO HIM INTO GOING. I HAVE ALSO RECONSULTED [facility] PSYCH FOR DR SALAZAR TO RE EVALUATE HIM. CM TO FOLLOW AND ASSIST NEEDED DCP- Discharge Planning Updated by [email or web address]: Kate Lawrence on 11/28/19 10:[address] I called Melisa with [facility] ( [phone]) and left message for her to call me back DCP- Discharge Planning Updated by [email or web address]: Kate Lawrence on 11/28/19 10:[address] Patient Name: LIDYA ESTEVES Admission Status: ER Accout number: [id number] Admission Date: 11-24-2019 : 1940 Admission Diagnosis:NONTRAUMATIC INTRACRANIAL HEMORRHAGE, UNSPECIFIED Attending: OSMAN FRIEND Current LOS: 4 Anticipated DC Date: Planned Disposition: Inpatient Rehab Primary Insurance: [facility] MEDICARE SOLUTIONS Discharge Planning Comments: CM spoke with patient's brother Billy at length about his plan of care. Billy stated that he called [facility]. Patient lives in the [facility]. He does not have a car, but takes a taxi to go to the grocery store or has a friend take him. He is afraid of doctors and does not see any. He lives alone. The is a question about eviction at his home. I will attempt to get ahold of the [facility] worker to see what she can tell me. I attempted to speak with the patient, but he was sleeping. CM will continue to follow and assist Salesperson Automobiles: Kate Lawrence DCPIA - Discharge Planning Initial Assessment Updated by [email or web address]: Kate Lawrence on 11/28/19 11:47 am * Is the patient Alert and Oriented? Yes * How many steps to enter\exit or inside your home? ELEVATOR * PCP NONE * Preadmission Environment Independent [facility] Apartment * Other Environment [facility] * ADLs Independent * List name and contact numbers for known caregivers / representatives who currently or will assist patient after discharge: BILLY (BROTHER) [phone] * Additional services required to return to the preadmission environment? Yes * Can the patient safely return to the preadmission environment? No * Has this patient been hospitalized within the prior 30 days at any hospital? No Last DP export: 11/28/19 10:56 a Patient Name: LIDYA ESTEVES Page [id number] at 1410 All edits/amendments must be made on the electronic document DICTATION DATE: 12/04/191408 AUTOMATION AND CONTROL ENGINEER: BASSAM 12/04/19 140 RPT#: [id number] DC DATE: STATUS: ADM IN [facility] [address] [place] [address] END OF REPORT
--- NOTE | 2019-12-04 14:40 | MORECARE ---
CASE MANAGEMENT DISCHARGE SUMMARY PATIENT: LIDYA ESTEVES UNIT: [id number] ADM DATE: 11/24/19 AGE: 79 : 40 SEX: M ROOM/BED: D.2212 AUTHOR: JANETTE CASH PHYSICIAN: REFERRING PHYSICIAN: OSMAN FRIEND DO DATE OF SERVICE: 12/04/19 Discharge Plan Patient Name: LIDYA ESTEVES Facility: [facility]:[place] : 1940 Planned Disposition: Inpatient Rehab Anticipated Discharge Date: Discharge Date: Expected LOS: Initial Reviewer: [email or web address] Initial Review Date: 11/24/2019 Generated: 12/04/19 3:39 pm Comments DCP- Discharge Planning Updated by [email or web address]: Kate Lawrence on 12/04/19 1:[address] ANGELIC GORDILLO CALLED ME BACK AND HE STATED THAT HIS BROTHER IS AGREEABLE TO GO TO INPATIENT REHAB. PATIENT WILL BE DISCHARGED TO THEM TODAY GO TO [facility] DCP- Discharge Planning Updated by [email or web address]: Kate Lawrence on 12/04/19 1:[address] PATIENT HAS BEEN ACCEPTED TO INPATIENT REHAB, AFTER SPEAKING WITH THE BROTHER AND LET HIM KNOW, I SPOKE WITH THE PATIENT AND HE IS REFUSING TO GO. PATIENT IS NO ORIENTED TO ANYTHING BUT SELF. HE DOES NOT KNOW THE PRESIDENT, YEAR, WHERE HE IS AT, WHERE HE LIVES. I HAVE EXPLAINED TO THE BROTHER ABOUT THIS AND HE WAS GOING TO CALL HIS BROTHER AND TRY TO TALK TO HIM INTO GOING. I HAVE ALSO RECONSULTED YANIQUE PSYCH FOR DR SALAZAR TO RE EVALUATE HIM. CM TO FOLLOW AND ASSIST NEEDED DCP- Discharge Planning Updated by [email or web address]: Kate Lawrence on 11/28/19 10:[address] I called Melisa with [facility] ( [phone]) and left message for her to call me back DCP- Discharge Planning Updated by [email or web address]: Kate Lawrence on 11/28/19 10:[address] Patient Name: LIDYA ESTEVES Admission Status: ER Accout number: [id number] Admission Date: 11-24-2019 : 1940 Admission Diagnosis:NONTRAUMATIC INTRACRANIAL HEMORRHAGE, UNSPECIFIED Attending: OSMAN FRIEND Current LOS: 4 Anticipated DC Date: Planned Disposition: Inpatient Rehab Primary Insurance: [facility] MEDICARE SOLUTIONS Discharge Planning Comments: CM spoke with patient's brother Billy at length about his plan of care. Billy stated that he called [facility]. Patient lives in the [facility]. He does not have a car, but takes a taxi to go to the grocery store or has a friend take him. He is afraid of doctors and does not see any. He lives alone. The is a question about eviction at his home. I will attempt to get ahold of the [facility] worker to see what she can tell me. I attempted to speak with the patient, but he was sleeping. CM will continue to follow and assist Child Neurologist: Kate Lawrence DCPIA - Discharge Planning Initial Assessment Updated by [email or web address]: Kate Lawrence on 11/28/19 11:47 am * Is the patient Alert and Oriented? Yes * How many steps to enter\exit or inside your home? ELEVATOR * PCP NONE * Preadmission Environment Independent [facility] Apartment * Other Environment [facility] * ADLs Independent * List name and contact numbers for known caregivers / representatives who currently or will assist patient after discharge: BILLY (BROTHER) [phone] * Additional services required to return to the preadmission environment? Yes * Can the patient safely return to the preadmission environment? No * Has this patient been hospitalized within the prior 30 days at any hospital? No Last DP export: 12/04/19 1:10 pm Patient Name: LIDYA ESTEVES Page [phone] at 1440 All edits/amendments must be made on the electronic document DICTATION DATE: 12/04/19 1439 ASBESTOS CLOTH INSPECTOR: BASSAM 12/04/19 1439 RPT#: [id number] DC DATE: STATUS: ADM IN [facility] [address] [place] [address] END OF REPORT
--- NOTE | 2019-12-04 15:15 | NUR ---
CALLED REPORT TO REHAB. NORMA
--- NOTE | 2019-12-04 15:28 | NUR ---
IV THERAPY SALINE LOCKED. DISCHARGE PAPERS SIGNED FOR PT TO GO TO REHAB.
--- NOTE | 2019-12-04 17:25 | NUR ---
CALLED TO SEE IF ROOM WAS READY. IT IS. WILL TAKE DOWN NOW.
--- NOTE | 2019-12-05 06:07 | NUR ---
OT NOTE: (DOS 12/04/2019) PT COMPLETED SUPINE TO SIT WITH CGA. PT COMPLETED EOB SITTING WITH SBA. PT COMPLETED ADL MOB WITH CGA/MIN A. PT COMPLETED ORAL HYGIENE WITH MIN VERBAL CUES AT EOB WITH GLO. PT COMPLETED HAIR GROOMING AT EOB WITH SET UP. [phone] THANK YOU,DAMIEN ONEAL
--- NOTE | 2019-12-05 08:43 | MORECARE ---
CASE MANAGEMENT DISCHARGE SUMMARY PATIENT: LIDYA ESTEVES UNIT: [id number] ADM DATE: 11/24/19 AGE: 79 : 40 SEX: M ROOM/BED: D.2212 AUTHOR: JANETTE CASH PHYSICIAN: REFERRING PHYSICIAN: OSMAN FRIEND DO DATE OF SERVICE: 12/05/19 Discharge Plan Patient Name: LIDYA ESTEVES Facility: [facility]:[place] : 1940 Planned Disposition: Inpatient Rehab Anticipated Discharge Date: Discharge Date: 12/04/2019 Expected LOS: Initial Reviewer: [email or web address] Initial Review Date: 11/24/2019 Generated: 12/05/19 9:42 am Comments DCP- Discharge Planning Updated by [email or web address]: Kate Lawrence on 12/04/19 1:[address] ANGELIC GORDILLO CALLED ME BACK AND HE STATED THAT HIS BROTHER IS AGREEABLE TO GO TO INPATIENT REHAB. PATIENT WILL BE DISCHARGED TO THEM TODAY GO TO [facility] [address] DCP- Discharge Planning Updated by [email or web address]: Kate Lawrence on 12/04/19 1:[address] PATIENT HAS BEEN ACCEPTED TO INPATIENT REHAB, AFTER SPEAKING WITH THE BROTHER AND LET HIM KNOW, I SPOKE WITH THE PATIENT AND HE IS REFUSING TO GO. PATIENT IS NO ORIENTED TO ANYTHING BUT SELF. HE DOES NOT KNOW THE PRESIDENT, YEAR, WHERE HE IS AT, WHERE HE LIVES. I HAVE EXPLAINED TO THE BROTHER ABOUT THIS AND HE WAS GOING TO CALL HIS BROTHER AND TRY TO TALK TO HIM INTO GOING. I HAVE ALSO RECONSULTED YANIQUE PSYCH FOR DR SALAZAR TO RE EVALUATE HIM. CM TO FOLLOW AND ASSIST NEEDED DCP- Discharge Planning Updated by [email or web address]: Kate Lawrence on 11/28/19 10:[address] I called Melisa with [facility] ( [phone]) and left message for her to call me back DCP- Discharge Planning Updated by [email or web address]: Kate Lawrence on 11/28/19 10:[address] Patient Name: LIDYA ESTEVES Admission Status: ER Accout number: [id number] Admission Date: 11-24-2019 : 1940 Admission Diagnosis:NONTRAUMATIC INTRACRANIAL HEMORRHAGE, UNSPECIFIED Attending: OSMAN FRIEND Current LOS: 4 Anticipated DC Date: Planned Disposition: Inpatient Rehab Primary Insurance: [facility] MEDICARE SOLUTIONS Discharge Planning Comments: CM spoke with patient's brother Billy at length about his plan of care. Billy stated that he called [facility]. Patient lives in the [facility]. He does not have a car, but takes a taxi to go to the grocery store or has a friend take him. He is afraid of doctors and does not see any. He lives alone. The is a question about eviction at his home. I will attempt to get ahold of the [facility]PS worker to see what she can tell me. I attempted to speak with the patient, but he was sleeping. CM will continue to follow and assist Plaster Form Maker: Kate Lawrence DCPIA - Discharge Planning Initial Assessment Updated by [id number]: Kate Lawrence on 11/28/19 11:47 am * Is the patient Alert and Oriented? Yes * How many steps to enter\exit or inside your home? ELEVATOR * PCP NONE * Preadmission Environment Independent [facility] Apartment * Other Environment [facility] * ADLs Independent * List name and contact numbers for known caregivers / representatives who currently or will assist patient after discharge: BILLY (BROTHER) [phone] * Additional services required to return to the preadmission environment? Yes * Can the patient safely return to the preadmission environment? No * Has this patient been hospitalized within the prior 30 days at any hospital? No Last DP export: 12/04/19 1:40 pm Patient Name: LIDYA ESTEVES Page 44826 at 0843 All edits/amendments must be made on the electronic document DICTATION DATE: 12/05/19841 BOILER TENDERS SUPERVISOR: BASSAM 12/05/19841 RPT#: [id number] DC DATE:12/04/19 STATUS: DIS IN [facility] [address] [place] [address] END OF REPORT
== END 2019-12-04 17:45 | DRG 64 ==
LOC: D.ER 15:55 → D.MS 18:26 → D.ICU 18:26 → D.MS 11-26 16:45
PROVIDERS: Family Medicine; ADMIT Family Medicine; ATTEND Family Medicine
DX: I62.9 Nontraumatic intracranial hemorrhage, unspecified (principal); G93.6 Cerebral edema; G93.40 Encephalopathy, unspecified; G51.0 Bell's palsy; N50.89 Other specified disorders of the male genital organs; F32.9 Major depressive disorder, single episode, unspecified

== ENCOUNTER 2019-12-04 18:22 | Inpatient (IN) | payer MEDICARE, MEDICAID ==
[~2019-12-04] VITALS: Ht 190.5 cm; Wt 85.3 kg
[~2019-12-04 18:22] MED LIST: CALMOSEPTINE OI71 GM TOPICAL; CELEXA20 MG PO; NICODERM CQ1 EAC1 TOPICAL; PROTONIX40 MG PO; ROCEPHIN 1 GM/D51 G1 IV
--- NOTE | 2019-12-04 20:08 | NUR ---
AWAKE AND ALERT. RESTING IN BED. DYSPHAGIA NOTED. HAS SOME MILD CONFUSION. RESPIRAITONS UNLABORED. LOWE PATENT. CALL LIGHT IN REACH.
[2019-12-04 21:45] VITALS: BP 153/77
--- NOTE | 2019-12-04 22:00 | NUR ---
RESTING IN BED WITH REPSIRATIONS UNLABORED. MYNOR PATENT. GARBLED SPEECH CONTINUES WITH MILD CONFUSION BUT NO INCREASED CONFUSION. CALL LIGHT IN REACH.
[2019-12-05 00:47] VITALS: BP 153/77; BMI 23.5
--- NOTE | 2019-12-05 03:22 | NUR ---
NO ACUTE CHANGES. SLEEPING WITH RESPIRAITONS UNLABORED. MYNOR PATENT.
--- NOTE | 2019-12-05 04:21 | NUR ---
URINE SPECIMEN COLLECTED AND SENT TO LAB FOR UA
[2019-12-05 04:47] LABS: BILIRUBIN NEGATIVE (NEGATIVE); GLUCOSE NEGATIVE (NEGATIVE); KETONE SMALL mg/dL (NEGATIVE); NITRITE NEGATIVE (NEGATIVE); SPECIFIC GRAVITY 1.015 (1.005-1.020); UROBILINOGEN NORMAL (NORMAL)
[2019-12-05 04:48] LABS: BACTERIA NONE SEEN /hpf (NEGATIVE); EPITHELIAL CELLS 0-5 /hpf (0-5); WHITE CELLS - URINE NSEEN /hpf (NEGATIVE)
--- NOTE | 2019-12-05 06:19 | NUR ---
AWAKE, SPPECH CONTINUES TO BE GARBLED WITH NOTED LIP SMACKING AND TOUNGE PROTRUDING/DARTING. REPIRATIONS UNLABORED. LOWE PATENT. NO ACUTE DISTRESS NOTED. CALL LIGHT IN REACH.
[2019-12-05 07:27] LABS: BASOPHILS 0.9 % (0-2); EOSINOPHILS 6.2 % (0-7); HEMATOCRIT 37.4 % (42.0-54.0); HEMOGLOBIN 12.2 g/dL (13.5-17.5); IMMATURE GRANULOCYTES 0.3 % (0-5); LYMPHOCYTES 24.4 % (15-50); MCH 27.8 pg (26.0-34.0); MCHC 32.6 g/dL (31.0-37.0); MCV 85.2 fL (80.0-100.0); MEAN PLATELET VOLUME 10.5 fL (7.4-10.4); MONOCYTES 8.4 % (2-11); NEUTROPHILS 59.8 % (40-80); PLATELET COUNT 248 10x3/uL (130-400); RBC 4.39 10x6/uL (4.20-6.10); RDW 13.1 % (11.5-14.5); WBC 6.6 10x3/uL (4.8-10.8)
[2019-12-05 07:42] LABS: CALC OSMOLALITY 273 mosm/kg (275-300); CALCIUM 8.8 mg/dL (8.5-10.1); CARBON DIOXIDE 28.8 mmol/L (21.0-32.0); CHLORIDE - SERUM 104 mmol/L (98-107); CREATININE - SERUM 0.8 mg/dL (0.6-1.3); GLUCOSE 99 mg/dL (74-106); POTASSIUM - SERUM 3.6 mmol/L (3.5-5.1); SODIUM 138 mmol/L (136-145); UREA NITROGEN 6 mg/dL (7-18); eGFR NON AFRICAN AMERICAN > 90 mL/min (90-120)
[2019-12-05 08:00] VITALS: BP 158/93
--- NOTE | 2019-12-05 08:15 | NUR ---
PATIENT REFUSES TO EAT BREAKFAST. STATED HE WAS TIRED AND WOULD EAT LATER. IV INTACT. CALL LIGHT WITHIN REACH.
--- NOTE | 2019-12-05 09:46 | NUR ---
PATIENT REFUSED ALL MEDS. NOTIFIED DR. DUPREE.
[2019-12-05 13:08] VITALS: Ht 190.5 cm; Wt 85.3 kg
[2019-12-05 20:19] VITALS: BP 134/67
--- NOTE | 2019-12-05 20:27 | NUR ---
AWAKE AND ALERT. RESTING IN BED. RESPIRATIONS UNLABORED. NO DISTRESS NOTED. LOWE PATENT. NOTED CONTINUED GARBLE SPEECH AND TOUNGE DARTING. CALL LIGHT IN REACH.
--- NOTE | 2019-12-06 05:23 | NUR ---
QUIET HOURS. NO ACUTE DISTRESS NOTED. LOWE PATENT. NO CHANGES IN CONDITION THIS SHIFT.
[2019-12-06 08:00] VITALS: BP 146/67
--- NOTE | 2019-12-06 10:10 | NUR ---
INCONT OF STOOL IN BED. APPEARS TO HAVE PULLED DOWN PAPER BRIEFS AND HAD VERY LOOSE BM IN BED. HE WAS SMEARED WITH STOOL AND BED WAS SATURATED IN STOOL. ASST TO TO BATHROOM TO HELP HIM CLEAN UP. HIS RIGHT TESTICLE WAS NOTED TO BE EXTREMELY LARGE AND SHAPED LIKE A FOOTBALL ON THE END. HE DENIED PAIN AND STATED HE HAD HAD THAT SIZE TESTICLE FOR EITHER ONE OR ELEVEN YEARS, HE COULD NOT TELL ME FOR SURE. SPEECH IS DIFFICULT TO UNDERSTAND. DR DUPREE ON FLOOR AND NURSE ASKED DR DUPREE TO EXAMINE IT. PT WOULD NOT LET ANYONE TOUCH HIM. HE HAS A F/C HE WAS TRYING TO PULL OUT WITH BALLOON INFLATED......INSTRUCTED HIM NOT TO PULL IT OUT. HE REFUSED MEDS AND MEAL. PT AND BED CLEANED.
--- NOTE | 2019-12-06 16:13 | NUR ---
RESTING QUIETLY IN BED. EYES CLOSED. CALL LIGHT IN REACH. BED IN LOWEST POSITION, SIDE RAILS UP X3.
--- NOTE | 2019-12-06 19:00 | NUR ---
ASSESSMENT COMPLETED. PATIENT AWAKE ALERT. HAS GARBLED SPEECH. PROVIDED SARAH MIST, AND 2 PUDDINGS PER REQUEST. PT REFUSED BATH. LOWE DRAINING TO GRAVITY WITH YELLOW URINE. BED LOW SIDE RAILS RAISED X2 WITH CALL LIGHT IN REACH. WILL CONTINUE TO MONITOR.
[2019-12-06 20:37] VITALS: BP 115/62
--- NOTE | 2019-12-06 21:00 | NUR ---
PT REFUSED NIGHT MEDS.PROVIDED SARAH MIST PER REQUEST. PATIENT STATED HE WILL EAT IF I BROUGHT HIM CHICKEN. REFUSED PUDDING OR APPLE SAUCE, OR ENSURE. CALL LIGHT IN REACH. PROVIDED INSTRUCTION TO CALL FOR NEEDS. PT SHOOK HEAD YES.
--- NOTE | 2019-12-07 00:20 | NUR ---
PT RESTING WITH EYES CLOSED. BED LOW WITH CALL LIGHT IN REACH.
--- NOTE | 2019-12-07 05:00 | NUR ---
PT RESTING WITH EYES CLOSED. BED LOW CALL LIGHT IN REACH. SIDE RAILS UP X 2 NO S/S OF DISTRESS.
[2019-12-07 08:00] VITALS: BP 143/71
--- NOTE | 2019-12-07 16:04 | NUR ---
STILL REFUSING ALL MEDS. THIS NURSE HAS ASKED ALL DAY IF PT WOULD TAKE HIS MEDS AND HE IS STILL REFUSING.
--- NOTE | 2019-12-07 19:48 | NUR ---
PT ASLEEP, AROUSES EASILY TO VOICE OR TOUCH, NO NEEDS NOTED, FLUIDS/CALL LIGHT WITHIN REACH, FALL PRECAUTIONS IN PLACE
--- NOTE | 2019-12-08 02:34 | NUR ---
PT ASLEEP AROUSES EASILY TO VOICE, NO NEEDS NOTED, FALL PRECAUTIONS IN PLACE, ALLOWED FLUIDS/CALL LIGHT WITHIN REACH
--- NOTE | 2019-12-08 04:27 | NUR ---
PT ASLEEP AROUSES EASILY TO VOICE, NO NEEDS NOTED, FALL PRECAUTIONS IN PLACE, ALLOWED FLUIDS/CALL LIGHT WITHIN REACH
[2019-12-08 06:18] VITALS: BP 101/62; BP 145/63
[2019-12-08 07:35] LABS: HEMATOCRIT 40.8 % (42.0-54.0); HEMOGLOBIN 13.2 g/dL (13.5-17.5); MCHC 32.4 g/dL (31.0-37.0); MCV 86.6 fL (80.0-100.0); MEAN PLATELET VOLUME 10.8 fL (7.4-10.4); PLATELET COUNT 282 10x3/uL (130-400); RBC 4.71 10x6/uL (4.20-6.10); RDW 13.5 % (11.5-14.5); WBC 8.2 10x3/uL (4.8-10.8)
[2019-12-08 07:51] LABS: CALC OSMOLALITY 279 mosm/kg (275-300); CALCIUM 9.2 mg/dL (8.5-10.1); CARBON DIOXIDE 30.5 mmol/L (21.0-32.0); CHLORIDE - SERUM 102 mmol/L (98-107); GLUCOSE 93 mg/dL (74-106); POTASSIUM - SERUM 3.8 mmol/L (3.5-5.1); SODIUM 139 mmol/L (136-145); UREA NITROGEN 18 mg/dL (7-18); eGFR NON AFRICAN AMERICAN 76 mL/min (90-120)
[2019-12-08 08:00] VITALS: BP 137/83
[2019-12-08 10:40] LABS: EOSINOPHILS 2 % (0-7); LYMPHOCYTES 26 % (15-50); MONOCYTES 10 % (2-11); NEUTROPHILS 62 % (40-80); PLATELET ESTIMATE NORMAL
--- NOTE | 2019-12-08 13:44 | NUR ---
HAS BEEN UP WITH THERAPY. MORE COOPERATIVE. STILL REFUSING ALL MEDS. DID EAT SOME BREAKFAST BUT REFUSED LUNCH. F/C DRAINING CLOUDY URINE.
--- NOTE | 2019-12-08 14:05 | NUR ---
Nutrition Follow-up: Diet: Moist Mechanical Soft with Gravy/sauces + Ensure TID PO intake: ~38% average x 9 meals recorded last week, none recorded recently. He tells me that his appetite is "okay" but complains that his roommate is too loud at night so he isnt sleeping well during the night which makes him want to sleep during the day and he is not eating as much because of being sleepy at meal times. He ate 100% of his breakfast today. He tells me that he is drinking the Ensure TID. Last BM: 12/06/19 x 2. WT: 188# (12/05/19) Meds noted: dulcolax. Labs reviewed Recommend continue current diet and oral nutrition supplements. Encouraged PO intake. RD following.
--- NOTE | 2019-12-08 20:44 | NUR ---
PT IN BED, NO NEEDS NOTED,FALL PRECAUTIONS IN PLACE FLUIDS/CALL LIGHT WITHIN REACH
[2019-12-08 21:40] VITALS: BP 116/66
--- NOTE | 2019-12-09 01:18 | NUR ---
PT ASLEEP AWAKENS EASILY TO VOICE, NO NEEDS NOTED, FALL/SAFETY PRECAUTIONS IN PLACE, FLUIDS/CALL LIGHT WITHIN REACH
[2019-12-09 08:00] VITALS: BP 195/78
--- NOTE | 2019-12-09 12:21 | NUR ---
PT IS REFUSING ALL MEDICATIONS. PT IS IRRITABLE AND STATES HE HAS BEEN SITTING UP TOO LONG. PT AGRRES TO SIT UP FOR LUNCH AND THEN LIE DOWN BEFORE NEXT THERAPY. WCTM.
--- NOTE | 2019-12-09 20:57 | NUR ---
PT ASLEEP, NO NEEDS NOTED, FALL PRECAUTIONS IN PLACE, FLUIDS/CALL LIGHT WITHIN REACH
[2019-12-09 22:02] VITALS: BP 124/64
--- NOTE | 2019-12-10 02:52 | NUR ---
PT ASLEEP AROUSES EASILY TO VOICE, NO IMMEDIATE NEEDS NOTED,FALL PRECAUTIONS IN PLACE, FLUIDS/CALL LIGHT WITHIN REACH
[2019-12-10 08:00] VITALS: BP 162/91
--- NOTE | 2019-12-10 08:00 | NUR ---
SHIFT ASSMT COMPLETED.BREAKFAST GIVEN.CL IN REACH.
--- NOTE | 2019-12-10 15:00 | NUR ---
CARE TEAM MEETING: DID PHONE CONFERENCE WITH PATIENT BROTHER FINESSE. HIS QUESTIONS AND CONCERNS WERE ADDRESSED. TENATIVE DC DATE IS 12/18/19. WILL CONTINUE TO FOLLOW WITH PATIENT.
--- NOTE | 2019-12-10 16:00 | NUR ---
FERNANDO THERAPY.WORKING WITH OT.SHOWER TAKEN.REPORTED PER OT THAT HE HAS VOIDED TWICE IN URINAL WITH STATED A GOOD STREAM.
[2019-12-10 21:59] VITALS: BP 123/69
--- NOTE | 2019-12-10 23:46 | NUR ---
PT ASLEEP AWAKENS EASILY TO VOICE, NO NEEDS NOTED, FALL/SAFETY PRECAUTIONS IN PLACE, FLUIDS/CALL LIGHT WITHIN REACH
[2019-12-11 07:38] VITALS: BP 161/74
--- NOTE | 2019-12-11 12:27 | NUR ---
CLINICAL UPDATES FAXED TO JANINE HARTLEY AT , AUTH. # [id number] WITH CONFORMATION RECIEVED. WILL CONTINUE TO FOLLOW WITH PATIENT.
--- NOTE | 2019-12-11 19:46 | NUR ---
RESTING IN BED WITH EYES CLOSED AND RESPIRAITONS UNLABORED. NO ACUTE DISTRESS NOTED. CALL LIGHT IN REACH.
[2019-12-11 21:48] VITALS: BP 124/70
--- NOTE | 2019-12-12 00:54 | NUR ---
ASSISTED TO BATHROOM AND BACK TO BED. NO DISTRESS NOTED.
--- NOTE | 2019-12-12 05:25 | NUR ---
QUIET HOURS. UP A FEW TIMES TO VOID. REFUSED ALL MEDICATIONS THIS SHIFT. NO DISTRESS NOTED.
[2019-12-12 08:00] VITALS: BP 130/82
--- NOTE | 2019-12-12 13:45 | NUR ---
Nutrition Follow-up: Diet: Regular Moist Mech Soft with Gravy/Sauces + Ensure TID PO intake: 50-75% x 3 (12/10/19), ate 25% of breakfast. Patient was asleep at time of RD rounding. Last BM: 12/11/19. WT: 188# (12/05/19) Meds and labs reviewed Recommend continue PO diet per [facility] recommendations. Continue oral nutrition supplements. RD following.
[2019-12-12 19:42] VITALS: BP 133/70
--- NOTE | 2019-12-12 19:45 | NUR ---
PATIENT RECEIVED SITTING UP IN BED. ASSESSMENT & VITAL SIGNS DONE. NO CC/O PAIN OR DISTRESS. RUSTY HOSE ON BILATERAL LEGS. BED LOW. CALL LIGHT WITHIN REACH. WILL CONTINUE TO MONITOR.
--- NOTE | 2019-12-12 20:35 | NUR ---
PATIENT OFFERED NIGHT MEDICATION. PATIENT REFUSED TO TAKE MEDICATIONS. WILL RETURN MEDICATIONS. BED LOW. ALARM ON. CALL LIGHT WITHIN REACH. WILL CONTINUE TO MONITOR.
--- NOTE | 2019-12-13 01:33 | NUR ---
I have reviewed this patient and I concur with the Shift Assessment completed by the Licensed Practical Nurse today this shift.
--- NOTE | 2019-12-13 02:16 | NUR ---
PATIENT EYES CLOSED. RESPIRATIONS 18 & EVEN. ALARM ON. CALL LIGHT WITHIN REACH. WILL CONTINUE TO MONITOR.
--- NOTE | 2019-12-13 07:22 | NUR ---
POSITIONED ON RIGHT SIDE WITH EYES CLOSED. RESP EVEN AND UNLABORED ON RA. NO APPARENT PROBLEMS AT THIS TIME. CALL LIGHT AND FLUIDS IN REACH, SIDERAILS UP X 2, AND BED IN LOW LOCKED POSITION.
[2019-12-13 08:48] VITALS: BP 142/93
--- NOTE | 2019-12-13 15:34 | NUR ---
I have reviewed this patient and I concur with the Shift Assessment completed by the Licensed Practical Nurse today this shift.
--- NOTE | 2019-12-13 19:45 | NUR ---
PATIENT RECEIVED SITTING UP IN BED WATCHING TV. ASSESSMENT & VITAL SIGNS DONE. NO C/O PAIN OR DISTRESS. ALARM ON. CALL LIGHT WITHIN REACH. WILL CONTINUE TO MONITOR.
--- NOTE | 2019-12-13 20:00 | NUR ---
PATIENT USED CALL LIGHT TO GO TO BATHROOM. STANDBY ASSIST TO COMMODE. VOID ONLY. RETURNED TO LOW BED. ALARM ON. CALL LIGHT WITHIN REACH. WILL CONTINUE TO MONITOR.
[2019-12-13 20:06] VITALS: BP 126/83
--- NOTE | 2019-12-13 20:20 | NUR ---
PATIENT USED CALL LIGHT TO GO TO THE BATHROOM. PATIENT STANDBY ASSIST TO COMMODE. VOID ONLY. RETURNED TO LOW BED. ALARM ON. CALL LIGHT WITHIN REACH. WILL CONTINUE TO MONITOR.
--- NOTE | 2019-12-13 21:20 | NUR ---
PATIENT USED CALL LIGHT FOR BATHROOM. STANDBY ASSIST TO BATHROOM. VOID & BM. RETURNED TO LOW BED. ALARM ON. CALL LIGHT SHERRYN REACH. WILL CONTINUE TO MONITOR.
--- NOTE | 2019-12-14 02:36 | NUR ---
I have reviewed this patient and I concur with the Shift Assessment completed by the Licensed Practical Nurse today this shift.
--- NOTE | 2019-12-14 03:37 | NUR ---
PATIENT USED CALL LIGHT FOR ASSIST. VOID ONLY. RETURNED TO LOW BED. ALARM ON. CALL LIGHT WITHIN REACH. WILL CONTINUE TO MONITOR.
[2019-12-14 08:00] VITALS: BP 138/78
--- NOTE | 2019-12-14 08:00 | NUR ---
AMBULATED TO BATHROOM W/O DEVICE.VOIDED STANDING UP IN FRONT OF COMMODE.AMBULATED BACK TO BED.EATING BREAKFAST.
--- NOTE | 2019-12-14 12:00 | NUR ---
EATING SOME LUNCH.CL IN REACH.
--- NOTE | 2019-12-14 16:00 | NUR ---
NO CHANGES.CONTINUES TO REFUSE MEDS.VERY PRIVATE,REFUSES TO BE ASSESSED BY NURSING.
--- NOTE | 2019-12-14 19:45 | NUR ---
PATIENT RECEIVED SITTING UP IN BED. ASSESSMENT & VITAL SIGNS DONE. PATIENT TOILETED & RETURNED TO LOW BED. REFUSED SHOWER. ALARM ON. CALL LIGHT WITHIN REACH. WILL CONTINUE TO MONITOR.
[2019-12-14 20:00] VITALS: BP 128/61
--- NOTE | 2019-12-14 20:00 | NUR ---
PATIENT CALL LIGHT ON. ALARM ON. PATIENT STANDBY ASSIST TO TOILET. VOID ONLY. RETURNED TO LOW BED. ALARM ON. CALL LIGHT WITHIN REACH. WILL CONTINUE TO MONITOR.
--- NOTE | 2019-12-15 01:33 | NUR ---
I have reviewed this patient and I concur with the Shift Assessment completed by the Licensed Practical Nurse today this shift.
--- NOTE | 2019-12-15 02:25 | NUR ---
PATIENT AWAKE STANDBY ASSIST TO BATHROOM. VOID ONLY. RETURNED TO BED. ALARM ON. BED LOW. CALL LIGHT WITHIN REACH. WILL CONTINUE TO MONITOR.
[2019-12-15 07:04] LABS: CALC OSMOLALITY 281 mosm/kg (275-300); CALCIUM 9.3 mg/dL (8.5-10.1); CARBON DIOXIDE 30.5 mmol/L (21.0-32.0); CHLORIDE - SERUM 102 mmol/L (98-107); CREATININE - SERUM 0.9 mg/dL (0.6-1.3); GLUCOSE 95 mg/dL (74-106); POTASSIUM - SERUM 4.4 mmol/L (3.5-5.1); SODIUM 138 mmol/L (136-145); UREA NITROGEN 28 mg/dL (7-18); eGFR NON AFRICAN AMERICAN 86 mL/min (90-120)
[2019-12-15 08:03] VITALS: BP 129/84
[2019-12-15 08:16] LABS: HEMATOCRIT 45.1 % (42.0-54.0); HEMOGLOBIN 14.5 g/dL (13.5-17.5); LYMPHOCYTES 25.2 % (15-50); MCHC 32.2 g/dL (31.0-37.0); MCV 87.1 fL (80.0-100.0); MEAN PLATELET VOLUME 11.1 fL (7.4-10.4); NEUTROPHILS 63.8 % (40-80); PLATELET COUNT 265 10x3/uL (130-400); RBC 5.18 10x6/uL (4.20-6.10); RDW 13.3 % (11.5-14.5); WBC 8.7 10x3/uL (4.8-10.8)
--- NOTE | 2019-12-15 13:48 | NUR ---
I have reviewed this patient and I concur with the Shift Assessment completed by the Licensed Practical Nurse today this shift.
--- NOTE | 2019-12-15 19:56 | NUR ---
PT IS RESTING IN BED WITH EYES CLOSED. NO ACUTE DISTRESS NOTED. SR'S ARE UP X 2 IN BED. CALL LIGHT AND BEDSIDE TABLE ARE WITHIN EASY REACH.
[2019-12-15 20:26] VITALS: BP 130/61
--- NOTE | 2019-12-15 22:04 | NUR ---
PT RESTING IN BED WITH EYES CLOSED. NO DISTRESS NOTED
--- NOTE | 2019-12-16 01:32 | NUR ---
I have reviewed this patient and I concur with the Shift Assessment completed by the Licensed Practical Nurse today this shift.
--- NOTE | 2019-12-16 04:48 | NUR ---
PT IS RESTING IN BED WATCHING TV. NO NEEDS VOICED.
--- NOTE | 2019-12-16 07:20 | NUR ---
POSITIONED ON RIGHT SIDE WITH EYES CLOSED AND RESP EVEN AND UNLABORED ON RA. NO APPARENT PROBLEMS. SIDERAILS UP X 2, CALL LIGHT AND FLUIDS IN REACH, BED IN LOW LOCKED POSITION.
[2019-12-16 07:55] VITALS: BP 123/65
--- NOTE | 2019-12-16 12:32 | NUR ---
order has been faxed to [employer] for a rolling walker. will continue to follow with patient.
--- NOTE | 2019-12-16 12:37 | NUR ---
I have reviewed this patient and I concur with the Shift Assessment completed by the Licensed Practical Nurse today this shift.
--- NOTE | 2019-12-16 16:02 | NUR ---
Nutrition Follow-up: Diet: Regular Moist MECH Soft with gravy/sauces + Ensure TID PO intake: ~54% average x last 6 meals. He reports that his appetite is down but states that he has been drinking Ensure. Last BM: 12/15/19. WT: 188# (12/05/19), no new weight Meds and labs reviewed Recommend continue current diet and oral nutrition supplements. RD following.
[2019-12-16 19:00] VITALS: BP 100/68
--- NOTE | 2019-12-16 19:46 | NUR ---
PT IN BED ASLEEP, AROUSES EASILY TO VOICE, PLEASANT, INTRODUCED SELF, NO NEEDS NOTED, FALL PRECAUTIONS IN PLACE, FLUIDS/CALL LIGHT WITHIN REACH
--- NOTE | 2019-12-17 00:48 | NUR ---
HELPED PT TO BED, IN ROOM, PLEASANT, INTRODUCED SELF, NO NEEDS NOTED, FALL PRECAUTIONS IN PLACE, FLUIDS/CALL LIGHT WITHIN REACH
--- NOTE | 2019-12-17 08:00 | NUR ---
REFUSES ASSMT.HAS SOME RECESSIVE APHASIA.BREAKFAST GIVEN.ANSWERS SIMPLE YES NO QUESTIONS.
--- NOTE | 2019-12-17 15:05 | NUR ---
CARE TEAM MEETING: PATIENT DOING WELL IN THERAPY. DISCHARGE DATE IS 12/18/19. WILL CONTINUE TO FOLLOW WITH PATIENT.
--- NOTE | 2019-12-17 16:00 | NUR ---
PLAN TO DC HOME TOMORROW.
--- NOTE | 2019-12-17 19:15 | NUR ---
PT ASLEEP AROUSES EASILY TO VOICE, NO NEEDS NOTED, FALL PRECAUTIONS IN PLACE, FLUIDS/CALL LIGHT WITHIN REACH
[2019-12-17 21:29] VITALS: BP 123/65
--- NOTE | 2019-12-18 03:12 | NUR ---
PT ASLEEP AROUSES EASILY TO VOICE, NO NEEDS NOTED, FALL PRECAUTIONS IN PLACE, FLUIDS/CALL LIGHT WITHIN REACH
[2019-12-18] MEDS ORDERED: SEROQUEL25 MG PO (07:31)
--- NOTE | 2019-12-18 07:32 | RHP ---
PATIENT: LIDYA ESTEVES MEDICAL RECORD: [id number] ACCOUNT: [id number] [facility] AD[facility]ION DATE: 12/04/19 REHABILITATION HISTORY AND PHYSICAL EXAMINATION POST ADMISSION PHYSICIAN EXAMINATION ADMITTING DIAGNOSIS: Left temporal lobe hemorrhage. HISTORY OF PRESENT ILLNESS: The patient is admitted secondary to a temporal brain dysfunction, left temporal lobe hemorrhage. He is a 79-year-old gentleman. He was placed on sedentary hold secondary to adult protective services secondary to aggressive behavior and poor hygiene. He had not bathed in approximately 2 weeks prior to presenting to the ED, was very agitated. The patient had a CT which showed an intracranial hemorrhage. He was admitted for intracranial hematoma and encephalopathy. 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 He was followed by neurosurgery during his stay and no surgical intervention was noted. He has also been seen by [facility] with a diagnosis of depression, started on antidepressant medications. He has been monitored closely for any type of intracerebral bleed, confusion, change in mental cognition, possible seizures. He is on supplemental O2. We are monitoring his H&H. Monitoring his I's and O's. He has got a Ortega catheter, electrolyte protocol, decreased strength, gait disturbance, limited safety awareness medical complexity and risk for falls. He has got an unsteady gait and balance. He fatigues easily, got inability to care for himself. These are all barriers to his discharge home. He lives at an apartment in the [facility]. He has got APS involved in his current care. He was independent with ADLs and mobility prior to fall causing intracerebral bleed, currently set up for max assist for ADLs and mod to max assist for mobility. He has got some acute confusion. He and his family plan for him to return back to his apartment at his prior level of functioning or better. COMORBIDITIES: Include weakness, oropharyngeal dysphagia, intracranial hemorrhage, traumatic encephalopathy, Tavarez's palsy, depression, debility, impaired mobility and self-care deficits. PAST MEDICAL HISTORY: Significant for Tavarez's palsy, tobacco use. PAST SURGICAL HISTORY: None. ALLERGIES: No known drug allergies. CURRENT MEDICATIONS: Include Floranex daily. He is on Rocephin 1 gram daily. He is on citalopram 10 mg daily, Protonix 40 mg daily, Calmoseptine to apply b.i.d. and MiraLax 17 grams in 8 ounces of water daily. HABITS: No alcohol or tobacco use. FAMILY HISTORY: Noncontributory. SOCIAL HISTORY: The patient hopes to return back to the [facility]. REVIEW OF SYSTEMS: GENERAL: Does complain of some weakness and fatigue. HEENT: Denies cold, cough, or congestion. CARDIOVASCULAR: Denies keith chest pain. HISTORY AND PHYSICAL [id number] LIDYA ESTEVES PHYSICAL EXAMINATION: VITAL SIGNS: Stable, afebrile. GENERAL: Elderly gentleman in no acute distress upon exam. HEENT: Normocephalic and atraumatic. Mucosa moist. NECK: Supple. No lymphadenopathy. LUNGS: Clear at this time with no wheezing, rhonchi or rales. HEART: Regular rate and rhythm. No murmurs, rubs, or gallops. ABDOMEN: Soft, benign and nondistended. Positive bowel sounds times 4. EXTREMITIES: No clubbing, cyanosis or edema. NEUROLOGIC: Does have some slow mentation and some weakness. LABORATORY DATA: His white count is 6.6, H&H of 12 and 37, and platelet count is 248. Sodium 138, potassium 3.6, BUN and creatinine of 6 and 0.8 and blood sugar is noted to be 99. His admit UA did show some red blood cells, but no signs of infection. ASSESSMENT: This is a 79-year-old gentleman admitted to the rehab with a working diagnosis of left temporal lobe hemorrhage with noted confusion and personality changes. The patient has potential to make improvement. We instituted the following multidisciplinary therapies including but not limited to physical, occupational, respiratory, speech, nutritional services, prosthetics and orthotics. Given his complex medical condition and risk for more complications, rehabilitation services cannot be provided at a low level of care such a half-way facility. PLAN: 1. Admit to [facility] for inpatient therapy to include the following disciplines; A. Physical therapy to improve gait, all transfer skills and bed mobility to a modified independent level. B. Occupational therapy to improve activities of daily living. C. Case management to help with discharge planning and placement options. D. Nutrition to assist with nutritional needs. E. Rehabilitation nursing to assist in monitoring the patient's underlying medical condition and to assist with any type of bowel or bladder management. 2. The patient's current medication and medical care will be continued. 3. The patient will be placed on standard fall precautions. 4. The patient's estimated length of stay is approximately 7-10 days. 5. We will discuss this patient during care team staff meeting this week and I will see again in the a.m. TRANSINT:[id number] Voice Confirmation ID: [id number] DOCUMENT ID: [id number] FIDELINA notes whether there has been none or any medical/functional change since admission: - No change since preadmission screen. FIDELINA attests patient continues to be appropriate for IRF: - Continues to be appropriate. HISTORY AND PHYSICAL [id number] LIDYA ESTEVES,JAGUAR YUEN MD at 0732 CC: [id number] DICTATION DATE: 12/05/19 1045 MAGNETIC TESTING TECHNICIAN: 12/05/19 1256 ADM IN [place] [id number] [place] [address]
[2019-12-18 08:00] VITALS: BP 123/65
--- NOTE | 2019-12-18 08:00 | NUR ---
SHIFT ASSMT COMPLETED.
--- NOTE | 2019-12-18 11:26 | NUR ---
PATIENT DISCHARGING HOME TODAY. [facility] WILL PROVIDE THERAPY AT HOME. KELLY DELIVERED A ROLLING WALKER TO PATIENT. DR. NOBLE 01/21/20 @ 3:00, DR. CRUZ 12/24/19 @ 9:30. MARYLU SIGNED , IMM SERVED AND EXPLAINED. NO COMPARE DATA REVIEWED PER PATIENT REQUEST. STRESSED TO PATIENT THAT TO HAVE HOME HEALTH HE HAD TO KEEP HIS APPOINTMENT WITH DR. CRUZ. DISCHARGE INTRUCTIONS HAVE BEEN FAXED TO HOME HEALTH , PCP AND REVIEWED WITH PATIENT PER PRIMARY NURSE.
--- NOTE | 2019-12-18 12:00 | NUR ---
WILL DC HOME TODAY.
--- NOTE | 2019-12-18 14:30 | NUR ---
[facility] CALLED A 2ND TIME.WAITING OUT FRONT.DISCHARGED IN STABLE CONDITION WITH ROLLING WALKER.
--- NOTE | 2019-12-18 15:31 | NUR ---
PATIENTS DISCHARGE INSTRUCTIONS HAVE BEEN FAXED WITH CONFORMATION RECIVED TO JANINE HARTLEY , AUTH. # [id number]
--- NOTE | 2019-12-18 15:42 | NUR ---
SPOKE WITH SHIKHA HICKS FROM APS , THAT PATIENT WAS DISCHARGING HOME AND THAT HE HAD TO KEEP HIS APPOINTMENTS OR APS WOULD BE NOTIFIED.
== END 2019-12-18 15:40 | disposition home health service (06) | DRG 64 ==
LOC: D.REHAB 18:22
PROVIDERS: ADMIT Emergency Medicine; ATTEND Emergency Medicine
DX: I62.9 Nontraumatic intracranial hemorrhage, unspecified (principal); G93.6 Cerebral edema; F07.81 Postconcussional syndrome; F32.9 Major depressive disorder, single episode, unspecified; R26.9 Unspecified abnormalities of gait and mobility; R53.83 Other fatigue; R53.1 Weakness; R13.12 Dysphagia, oropharyngeal phase; G51.0 Bell's palsy; R53.81 Other malaise; F41.9 Anxiety disorder, unspecified